=== PATIENT | female | born 1935 | race Caucasian/White ===

== ENCOUNTER → 2020-04-13 13:02 | Outpatient (CLI) | payer MEDICARE, SELFPAY ==
--- NOTE | ~2020-04-13 | DEXA_ITS ---
Bone Density Report Name: Belem Duran Age: 85 Sex: Female Ethnicity: White Date of : 1935 Indication: postmenopausal osteoporosis; height loss; prior fracture; hysterectomy; rheumatoid arthritis; Referring Provider: Mahendra Butterfield Study: Bone densitometry was performed. Exam Date: April 13, 2020 Accession number: [id number] Bone Density: Region BMD T-score Z-score Classification AP Spine (L1, L2) 0.753 -2.1 0.6 Osteopenia Femoral Neck (Right) 0.498 -3.2 -0.7 Osteoporosis Total Hip (Right) 0.550 -3.2 -1.0 Osteoporosis World Health Organization criteria for BMD impression classify patients as: Normal (T-score at or above -1.0), Osteopenia (T-score between -1.0 and -2.5), or Osteoporosis (T-score at or below -2.5). 10-year Fracture Risk: FRAX not reported because: Some T-score for Spine Total or Hip Total or Femoral Neck at or below -2.5 Prior hip or vertebral fracture Previous Exams: Region Exam Age BMD T-score BMD Change BMD Change Date g/cm2 vs Baseline vs Previous AP Spine(L1, L2) 04/13/2020 85 0.753 -2.1 0.022 0.022 12/12/2015 80 0.731 -2.3 Total Hip(Right) 04/13/2020 85 0.550 -3.2 -0.024 -0.024 12/12/2015 80 0.574 -3.0 *Denotes significance at 95% confidence level, LSC for AP Spine = 0.022 g/cm2, LSC for Total Hip = 0.027 g/cm2 Clinical Information Provided by Patient: Have had a previous hip or vertebral fracture Has had a low trauma fracture Has rheumatoid arthritis Has used the following medications: Vitamin D, Calcium Has the following medical conditions: Hysterectomy Patient maximum height was 62 Menopause Age: 57 Does not regularly consume dairy products Drinks caffeinated beverages Onset of menses at age 16 Number of children 3 Impression: The patient has established osteoporosis, based on the Right Total Hip T-score and the existence of a prior fracture. The patient has risk factors, including: previous fracture. No significant bone loss was observed. Discussion: HIGH RISK OF FRACTURE. BONE DENSITY IS UNDESIRABLY LOW AT ONE OR MORE SKELETAL SITES, CONSISTENT WITH POSTMENOPAUSAL OSTEOPOROSIS. This patient's lowest T-score, in a patient who has previously fractured, meets the World Health Organization's (WHO) criteria for severe osteoporosis. In untreated patients, the risk of osteoporotic fracture increases approximately two-fold for each 1.0 SD decrease in T-score. Low bone density is not the only risk factor for fracture; also consider factors such as patient's
== END ==
PROVIDERS: PCP Physician Assistant; Visit Provider Physician Assistant
DX: Z78.0 Asymptomatic menopausal state (principal); M85.88 Other specified disorders of bone density and structure, other site; M81.0 Age-related osteoporosis without current pathological fracture
CPT/HCPCS: 77080

== ENCOUNTER 2020-06-27 09:26 | Outpatient (CLI) | payer MEDICARE, SELFPAY ==
--- NOTE | ~2020-06-27 | MM_ITS ---
EXAMINATION: MM screening antonio BI w kristie HISTORY: Screening mammogram TECHNIQUE: Craniocaudal and mediolateral oblique 3-D tomosynthesis images were obtained and synthetic 2-D images were generated. CAD analysis was submitted and interpreted. COMPARISON: 12/18/2016, 12/12/2015, 12/09/2014 bilateral digital screening mammogram examinations BREAST PARENCHYMAL COMPOSITION: There are scattered areas of fibroglandular density. FINDINGS: Scattered bilateral benign calcifications. Stable fibroglandular asymmetry. There is no andrew dence of suspicious mass, calcification, or architectural distortion to suggest malignancy in either breast. There has been no suspicious interval change. IMPRESSION: 1. No mammographic evidence of malignancy. 2. Recommend routine screening mammography in one year. BI-RADS Category 2: Benign finding(s). Reviewed, dictated and finalized at location A.
== END 2020-06-27 09:27 | disposition home or self-care (01) ==
LOC: ANHIMG 09:29
PROVIDERS: PCP Internal Medicine; Visit Provider Internal Medicine
DX: Z12.31 Encounter for screening mammogram for malignant neoplasm of breast (principal)
CPT/HCPCS: 77063; 77067

== ENCOUNTER 2020-08-30 10:43 | Emergency (ER) | payer MEDICARE, SELFPAY ==
--- NOTE | ~2020-08-30 | XR_ITS ---
XR hip LT 2V w AP pelvis 08/30/2020 11:08 Indication: Pelvic pain Procedure: AP pelvis and 2 views left hip Comparison: No prior studies for comparison. Findings: There is a nondisplaced left superior and inferior pubic rami fractures. There is a left to [place] hip arthroplasty. There is osteitis pubis. There is lower lumbar spondylosis partially visualized . No significant soft tissue abnormality. Impression: 1: Nondisplaced left superior and inferior pubic rami fractures. Reviewed, dictated and finalized at location B. Impression: 1: Nondisplaced left superior and inferior pubic rami fractures.
[2020-08-30 10:51] VITALS: BP 142/77; PULSE 79; RESP 16; TEMP 36.9; O2SAT 97
--- NOTE | 2020-08-30 10:54 | ED.LOWEXIN ---
HPI - Extremity Injury (Lower) General Chief Complaint: Extremity Injury, Lower Stated Complaint: Fall History of Present Illness HPI Narrative: The vaccinated patient who walks regularly w/o assistance-- on few meds and lives alone, in independent living at [facility]-- presents with hip pain. Patient states she has had left hip replacement [[place], no local orthopedist] and prior to arrival she slipped and fell striking her left hip .She complains of mod pain, antalgic gait that is worse with motion, better at rest, located at her left inguinal crease. No bleeding, other injury, neck pain, deformity at site, but she has a skin avulsion to her right extensor wrist, tetanus status uncertain Discussed plan with patient to consult her PMD, orthopedics on-call [Dr. Blancas], nursing assistant, family for treatment & placement. Patient offered ambulance which she declines Related Data Home Medications Medication Instructions Recorded Confirmed ascorbic acid (vitamin C) 500 mg 500 mg PO DAILY 05/11/19 06/21/20 tablet cholecalciferol (vitamin D3) 25 1,000 unit PO DAILY 05/11/19 06/21/20 mcg (1,000 unit) capsule multivit with 1 tablet PO DAILY 02/04/20 06/21/20 [id number]-bkmy-PR-lutein 8 mg iron-400 mcg-300 mcg tablet vit C 250 mg-vit E 200 unit-zinc 1 tablet PO QAM AND QPM 02/04/20 06/21/20 12.5 mg-copper 1 ky-dvi-gyeyiw tablet lisinopril 10 mg tablet 10 mg PO DAILY 06/21/20 06/21/20 Allergies Allergy/AdvReac Type Severity Reaction Status Date / Time No Known Allergies Allergy NONE Unverified 06/21/20 10:30 Review of Systems Review of Systems: Narrative: General/Constitutional: No weight loss,fever Eyes: N0: Redness,discharge Ears/Nose/Throat: No: Epistaxis,ear discharge Respiratory: Denies: Hemoptysis Gastrointestinal: No Vomiting, Bleeding-rectal Skin: No Lumps, eruption Neurologic: No Focal Weakness,Sz Hematologic: Denies: Petechiae/Purpura Psychiatric: No: Suicida ideationl All Other Systems: Reviewed and Negative [facility] Past Medical History Medical History (Updated 08/30/20 @ 16:02 by Aaron Ga MD) Basal cell carcinoma Cataract fragments of both eyes following cataract surgery Generalized osteoarthritis of multiple sites Hammer toe of right foot 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 Surgical History Surgical History H/O hand surgery H/O lateral meniscus repair of left knee History of lumbar laminectomy for spinal cord decompression History of partial hysterectomy History of repair of hiatal hernia History of total left hip replacement Family History Family History Sibling Family history of malignant neoplasm Father Malignant neoplasm of prostate, Onset Age: 93 Diabetes mellitus Mother Hypertension Family history of malignant neoplasm of uterus Other Family history of diabetes mellitus in first degree relative Social History Social History Smoking status: Former smoker Second hand tobacco smoke exposure: No Smoking end date: 03/25/71 Alcohol intake: never Substance use: never Substance use type: does not use Gender identity (if verbalized by the patient): Female Spiritual care concerns: Yes (Latter Day) Agree to blood products: Yes Comments At time of signature, agree with nursing past medical, surgical, social and family history. There is no relevant family history pertinent to the presenting complaint Exam Narrative: Exam Narrative: General Appearance: N/aged appearing EYE: PERRLA, EOMI, Conjunctiva clear Ears: External ear normal, Auditory canal normal Nose: Normal nose, Nares clear Mouth/Throat: Normal appearing, Normal lips Neck: Supple Respiratory: A
[2020-08-30] MEDS: TETANUS,DIPHTHERIA,AC PERTUSSIS ADULT (0.5 ML) BOOSTRIX IM (12:26)
--- NOTE | 2020-08-30 12:41 | PC.NURSE ---
Attempting to contact Dr. Valdes without success. Message left at office number. No other numbers available. No call back received. Dr. Hampton contacted as head refrigeration engineer doctor. Patient with previous hip surgery that was done in [place].
--- NOTE | 2020-08-30 13:10 | PC.NURSE ---
Report was called to Rosmery FRANKLIN at [facility]
== END 2020-08-30 13:04 | disposition short-term general hospital (02) ==
PROVIDERS: Emergency Provider Emergency Medicine; PCP Internal Medicine
DX: S32.512A Fracture of superior rim of left pubis, initial encounter for closed fracture (principal); S32.592A Other specified fracture of left pubis, initial encounter for closed fracture; S61.411A Laceration without foreign body of right hand, initial encounter; W01.0XXA Fall on same level from slipping, tripping and stumbling without subsequent striking against object, initial encounter; Z23 Encounter for immunization; M19.90 Unspecified osteoarthritis, unspecified site; M06.9 Rheumatoid arthritis, unspecified; Z85.828 Personal history of other malignant neoplasm of skin; Z96.642 Presence of left artificial hip joint
CPT/HCPCS: 12001; 73502; 90471; 90715; 99213; G0463

== ENCOUNTER 2020-08-30 13:18 | Observation (INO) | payer MEDICARE, SELFPAY ==
[2020-08-30] VITALS (16 sets, daily range): BP systolic 133–174; BP diastolic 79–107; PULSE 82–95; RESP 16–20; TEMP 36.1–36.6; O2SAT 92–99; BMI 23.6
--- NOTE | 2020-08-30 13:57 | ED.LOWEXIN ---
HPI - Extremity Injury (Lower) General Chief Complaint: Extremity Injury, Lower Stated Complaint: pelvic fx sent from urgent care Time Seen by Provider: 08/30/20 13:37 History of Present Illness HPI Narrative: Patient is an 85-year-old female who presents ER after suffering a left pubic ramus fracture after walking up 1 step. Diagnosed at a urgent care and then referred here at the recommendation of orthopedic surgery. Patient has no new pain is not want any pain control at this time. She has no numbness or tingling to her lower extremity. Pain is worsened by movement of the left lower extremity and improved by sitting still. Patient did not strike her head or lose consciousness. Related Data Home Medications Medication Instructions Recorded Confirmed ascorbic acid (vitamin C) 500 mg 500 mg PO DAILY 05/11/19 06/21/20 tablet cholecalciferol (vitamin D3) 25 1,000 unit PO DAILY 05/11/19 06/21/20 mcg (1,000 unit) capsule multivit with 1 tablet PO DAILY 02/04/20 06/21/20 nxnyaenk-akdk-RS-lutein 8 mg iron-400 mcg-300 mcg tablet vit C 250 mg-vit E 200 unit-zinc 1 tablet PO QAM AND QPM 02/04/20 06/21/20 12.5 mg-copper 1 qc-dxd-jfbtfo tablet lisinopril 10 mg tablet 10 mg PO DAILY 06/21/20 06/21/20 Allergies Allergy/AdvReac Type Severity Reaction Status Date / Time No Known Allergies Allergy NONE Unverified 06/21/20 10:30 Review of Systems Review of Systems: All systems reviewed & are unremarkable except as noted in HPI and below Constitutional: Constitutional: Denies chills and Denies fever(s) Musculoskeletal: Musculoskeletal: Reports arthralgias, Denies joint swelling and Denies muscle cramps Neurologic: Denies syncope, Denies headache(s), Denies focal weakness and Denies numbness [facility] Past Medical History Medical History (Updated 08/30/20 @ 16:01 by Anoop Medina MD) Basal cell carcinoma Cataract fragments of both eyes following cataract surgery Generalized osteoarthritis of multiple sites Hammer toe of right foot 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 Surgical History Surgical History H/O hand surgery H/O lateral meniscus repair of left knee History of lumbar laminectomy for spinal cord decompression History of partial hysterectomy History of repair of hiatal hernia History of total left hip replacement Family History Family History Sibling Family history of malignant neoplasm Father Malignant neoplasm of prostate, Onset Age: 93 Diabetes mellitus Mother Hypertension Family history of malignant neoplasm of uterus Other Family history of diabetes mellitus in first degree relative Social History Social History Smoking status: Former smoker Second hand tobacco smoke exposure: No Smoking end date: 03/25/71 Alcohol intake: never Substance use: never Substance use type: does not use Gender identity (if verbalized by the patient): Female Spiritual care concerns: Yes (Rastafarian) Agree to blood products: Yes Exam Narrative: Exam Narrative: GENERAL: Well-appearing, well-nourished, and in no acute distress. HEAD: Normocephalic, atraumatic. CHEST: Clear to auscultation. No respiratory distress. HEART: Regular rate and rhythm. Normal peripheral pulses. EXTREMITIES: Decreased range of motion of the left hip due to pain. Normal range of motion right lower extremity. No lower extremity shortening or external rotation. SKIN: Warm, dry, no rash. NEURO: No focal deficits. Alert and oriented x3. PSYCH: Normal mood and affect. Course Reevaluation(s) Reevaluation #1: Attempted to contact orthopedic surgery who did not come to the phone and said patient should just be admitted to the hospitalist. This appea
--- NOTE | 2020-08-30 14:25 | PCCCNOTE ---
Care Coordination spoke with patient about her needs since her fall and fractured pelvis. Patient states she will need help with basic ADL's and would like to go to [facility]. Patient requested Care Coordination call Dominga at [facility]. CC spoke with Dominga who states patient can be private pay or [facility] can be contacted for auth. Patient prefers to go SNF. notified and he will place patient into observation with orders for PT/OT eval and treat. [facility] auth will need to be submitted. Patient reports she has had [place] immunizations in Apr.
[2020-08-30 14:54] LABS: Basophils Absolute Auto 0.1 K/mm3 (0.0-0.1); Basophils Percent Auto 0.4 % (0.2-1.2); Eosinophils Percent Auto 0.3 % (0-4.4); Hematocrit 40.4 % (37.0-47.0); Hemoglobin 13.1 g/dL (12.0-15.0); Immature Granulocyte Absolute 0.04 K/mm3 (0.00-0.031); Immature Granulocyte Percent A 0.3 % (0-0.5); Lymphocytes Absolute Auto 0.82 K/mm3 (0.9-3.2); Lymphocytes Percent Auto 6.9 % (18.3-44.2); Mean Corpuscular HGB Conc 32.4 g/dl (32-36); Mean Corpuscular Hemoglobin 30.4 pg (26-34); Mean Corpuscular Volume 93.7 fl (80-100); Mean Platelet Volume 10.7 fl (7.4-10.4); Monocytes Absolute Auto 0.9 K/mm3 (0.1-0.6); Monocytes Percent Auto 7.6 % (2.6-8.5); Neutrophils Percent Auto 84.5 % (45.5-73.1); Platelet Count Result 202 k/mm3 (150-375); Red Blood Count 4.31 M/mm3 (4.2-5.4); Red Cell Distribution Width 13.8 % (11.5-14.5); White Blood Count 11.9 K/mm3 (4.5-10.0)
[2020-08-30 15:03] LABS: Anion Gap 8 mmol/L (8-16); Blood Urea Nitrogen 16 mg/dL (7-17); Calcium 9.2 mg/dL (8.4-10.2); Carbon Dioxide 25 mmol/L (22-30); Chloride 102 mmol/L (98-107); Estimated Glomerular Filt Rate > 60; Glucose 95 mg/dL (65-105); Potassium 4.4 mmol/L (3.4-5.0); Sodium 135 mmol/L (137-145)
--- NOTE | 2020-08-30 17:45 | PC.NURSE ---
This patient, Belem Duran, was admitted to 3 [facility] Surg Room 316-01. Patient/family oriented to hospital policies and general routines including ID bracelet, bed and alarms, visiting hours, pain management, procedures, bathroom and other care routines, personal items, smoking policy, room service/diet, and visiting hours. Information on how to activate the Rapid Response Team has been discussed. Patient/Family are encouraged to report perceived risks to care and to ask questions if they do not understand what they are told or what they should do.
--- NOTE | 2020-08-30 19:32 | PM.IMHP ---
H&P: HPI History of Present Illness Date/Time: 08/30/20 19:32 this is a 85-year-old female patient who resides at [facility]. The patient stated that she was going into another room and missed a step and fell. She did not have any chest pain or palpitations she did not feel dizzy. No fever chills or cough. To urgent care and was diagnosed there for a pelvic ramus fracture. She was referred here for recommendations for orthopedic surgery. However this is not a diagnosis that would require surgery. The patient had no numbness or tingling. Orthopedic had been called from the emergency room. It was recommended that the patient just be admitted to the hospitalist. Nondisplaced left superior and inferior pubic rami fractures. Complaints. The patient was ordered morphine Tylenol Zofran and [place]. However does not look like the patient has taken anything as of yet. The patient is being admitted to observation status. Date of service is 08/30/2020. Chief Complaint: Fall with pelvic pain Review of Systems Review of Systems: All systems reviewed & are unremarkable except as noted in HPI and below Constitutional: Constitutional: Reports as per HPI and Reports no additional constitutional complaints Eyes: Eyes: Reports as per HPI and Reports no additional eye complaints ENT: Reports system reviewed and no additional complaints, except as documented and Reports Normal hearing present Cardiovascular: Cardiovascular: Reports no additional cardiovascular complaints Respiratory: Respiratory: Reports no additional respiratory complaints and Reports no additional respiratory complaints Gastrointestinal: Gastrointestinal: Reports as per HPI and Reports no additional gastrointestinal complaints Musculoskeletal: Musculoskeletal: Reports no additional musculoskeletal complaints Integumentary/Breasts: Skin/Breast: Reports system reviewed and no additional complaints, except as docu and Reports as per HPI Neurologic: Reports system reviewed and no additional complaints, except as documented, Reports as per HPI and Reports Normal hearing present Psychiatric: Psychiatric: Reports no additional psychiatric complaints and Reports as per HPI Endocrine: Endocrine: Reports no additional endocrine complaints Hematologic/Lymphatic: Hematologic/Lymphatic: Reports no additional hematologic/lymphatic complaints Allergic/Immunologic: Allergic/Immunologic: Reports no additional allergic/immunologic complaints [facility] Past Medical History Medical History (Updated 08/30/20 @ 20:08 by Zarina Sterling NP) Basal cell carcinoma Face Breast cancer screening Counseling on health promotion and disease prevention Encounter for Medicare annual wellness exam Encounter for medication management Generalized osteoarthritis of multiple sites Hammer toe of right foot Hypertension Osteoporosis Osteoporosis screening Rheumatoid arthritis 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 Hands Surgical History Surgical History (Updated 08/30/20 @ 19:47 by Zarina Sterling NP) H/O bilateral cataract extraction H/O hand surgery H/O lateral meniscus repair of left knee History of lumbar laminectomy for spinal cord decompression History of partial hysterectomy History of removal of pigmented skin lesion Basal cell from the face and squamous cell from the hand History of repair of hiatal hernia History of total left hip replacement Family History Family History Sibling Family history of malignant neoplasm Father Malignant neoplasm of prostate, Onset Age: 93 Diabetes mellitus Mother Hypertension Family history of malignant neoplasm of uterus Other Family history of diabetes mellitus in first degree relative Social History Social History (Updated 08/30/20 @ 19:48 by Zarina Kc
[2020-08-30] MEDS: lisinopriL 5 MG TABLET PO (22:07)
--- NOTE | 2020-08-31 03:50 | PHAR ---
HOME MEDICATION VERIFIED BY PHARMACY: PRESERVISION AREDS 2 OCULAR VITAMIN SEALED CONTAINER
[2020-08-31 06:00] VITALS: BP 116/75; PULSE 74; RESP 18; TEMP 36.2; O2SAT 98
[2020-08-31 07:16] LABS: Basophils Percent Auto 0.5 % (0.2-1.2); Eosinophils Absolute Auto 0.1 K/mm3 (0-0.3); Eosinophils Percent Auto 1.5 % (0-4.4); Hematocrit 34.4 % (37.0-47.0); Hemoglobin 11.5 g/dL (12.0-15.0); Immature Granulocyte Absolute 0.01 K/mm3 (0.00-0.031); Immature Granulocyte Percent A 0.2 % (0-0.5); Lymphocytes Absolute Auto 0.99 K/mm3 (0.9-3.2); Lymphocytes Percent Auto 16.7 % (18.3-44.2); Mean Corpuscular HGB Conc 33.4 g/dl (32-36); Mean Corpuscular Hemoglobin 30.7 pg (26-34); Mean Corpuscular Volume 91.7 fl (80-100); Mean Platelet Volume 11.3 fl (7.4-10.4); Monocytes Absolute Auto 0.7 K/mm3 (0.1-0.6); Monocytes Percent Auto 11.7 % (2.6-8.5); Neutrophils Absolute Auto 4.1 K/mm3 (1.3-6.7); Neutrophils Percent Auto 69.4 % (45.5-73.1); Platelet Count Result 195 k/mm3 (150-375); Red Blood Count 3.75 M/mm3 (4.2-5.4); Red Cell Distribution Width 13.8 % (11.5-14.5); White Blood Count 5.9 K/mm3 (4.5-10.0)
[2020-08-31 07:31] LABS: Alanine Aminotransferase 7 U/L (4-35); Albumin Level 3.1 g/dL (3.5-5.1); Alkaline Phosphatase 64 U/L (38-126); Anion Gap 8 mmol/L (8-16); Aspartate Amino Transferase 23 U/L (14-36); Blood Urea Nitrogen 13 mg/dL (7-17); Calcium 8.6 mg/dL (8.4-10.2); Carbon Dioxide 24 mmol/L (22-30); Chloride 102 mmol/L (98-107); Estimated Glomerular Filt Rate > 60; Glucose 87 mg/dL (65-105); Magnesium 2.1 mg/dL (1.6-2.3); Potassium 4.1 mmol/L (3.4-5.0); Sodium 134 mmol/L (137-145)
--- NOTE | 2020-08-31 08:35 | PCOTNOTE ---
Attempted OT evaluation, awaiting WB orders in order to complete evaluation. Will follow.
[2020-08-31] MEDS: CHOLECALCIFEROL 1,000 UNITS TABLET 1000 UNITS PO (08:39)
[2020-08-31] MEDS: MULTIVITAMINS /C LUTEIN (CENTRUM SILVER) TABLET *BKC 1 TAB PO (08:40)
[2020-08-31] MEDS: PRAVASTATIN SODIUM 10 MG TABLET PO (08:40)
[2020-08-31 09:56] VITALS: O2SAT 98
--- NOTE | 2020-08-31 12:38 | PM.CNOR ---
Assessment and Plan Additional Plan Patient is an 85-year-old female who fell yesterday onto her left side and had pain in the groin. She was seen at Urgent Care and ventrally transferred to the hospital for further evaluation and she was not felt to be a candidate for discharge to her [facility] apartment where she lives by herself and she was admitted for management. The x-rays left hip and AP pelvis show a well-positioned left total hip arthroplasty that was placed 7 years ago when she fell and sustained a femoral neck fracture. With her history of rheumatoid arthritis it was elected to do a total hip replacement and this has worked very well and fortunately the hip replacement looks intact on the x-rays. The x-rays do show a mildly impacted mid superior and mid inferior pubic ramus fractures on the left. No other fractures identified. She does have a history of osteoporosis and a bone density test in March was-3.2. Some years ago she completed her 5 year course of Fosamax. She is being referred by her primary care physician to of bone heat treater helper for evaluation whether osteoporosis treatment options and her appointment is in later September and hopefully she will be able to make that appointment. Her past medical history is significant for a pulmonary embolism 25 years ago which occurred while she was taking Prempro. She has a history of smoking but was not smoking at that time. She has remained off estrogen medications ever since of course and was treated with Coumadin for a period of time. She used to take a baby aspirin a day and this was in association with an anti hypertension medication but both of those were stopped years ago. Recently her antihypertensive in medication was resumed. She is on no blood thinning medications at this time. She has had no recurrent thromboembolic events to her knowledge. On examination today she is very alert and oriented. She is sitting up in the chair and she is not having any pain. She only hurts when she puts weight on it. There is no swelling in the left leg no calf tenderness. She has a 1+ dorsalis pedis pulse palpable and has intact motor sensation left ankle. She denies any other injury. Laboratory studies show mild anemia hemoglobin 11.5. Normal creatinine and platelets. Impression: Patient has mildly displaced left superior and inferior pubic ramus fractures. She does take a vitamin-D supplement and we will check a 25 hydroxy vitamin-D level to make sure it is within the normal range. She has a history of osteoporosis with a T-score of -3.2 in the right hip back in March of this year. I think she will need to be on additional medication perhaps Forteo or Tymlos. she has been through the 5 years of Fosamax already. I am going to add Citracal twice daily. She is at risk for thromboembolic complications with her history of a pulmonary embolism. I would recommend Eliquis 2.5 mg for 6 weeks. Of the blood thinner options for prophylaxis, Eliquis as the lowest risk of bleeding complications and a highest efficacy. She asked if the cost could be evaluated for her. I have written orders for physical therapy here at the hospital as well as on her discharge summary. I would like to see her in the office in 4 weeks with AP pelvis x-ray at that time to assess healing and if she has no pain and there is some callus formation we may be able to advance her to weight-bearing as tolerated at that time. She would like to go to the rehab unit at [place] at discharge from the hospital when she is felt stable History of Present Illness HPI Consult date: 08/31/20 Chief complaint: pubic rami fracture [facility] Past Medical History Medical History (Updated 08/31/20 @ 00:01 by Ran Rossi) Basal cell carcinoma Face Breast cancer screening Counseling on health promotion and disease prevention Encounter for Medicare annual wellness exam Encounter for medication management Generalize
--- NOTE | 2020-08-31 13:23 | PCPTNOTE ---
Per ortho consultation following PT evaluation, patient is to now be 25# weight bearing, was previously WBAT per hospitalist. No heel slides or SLR at this time.
[2020-08-31 14:00] VITALS: BP 122/60; PULSE 80; RESP 16; TEMP 36.7; O2SAT 97
--- NOTE | 2020-08-31 14:10 | PCOTNOTE ---
Per ortho consultation following OT evaluation, patient is to now be 25lb weight bearing, was previously WBAT per hospitalist.
--- NOTE | 2020-08-31 15:56 | PM.IMPN ---
Progress Note: A&P Assessment and Plan (1) Fracture of left inferior pubic ramus: Qualifiers: Encounter type: initial encounter Fracture type: closed Qualified Code(s): S32.592A - Other specified fracture of left pubis, initial encounter for closed fracture Code(s): S32.592A - Other specified fracture of left pubis, initial encounter for closed fracture Status: Inactive Assessment and Plan: PT and OT evaluation. ER did consult orthopedic physician although there would not be any surgery involved. director of rehabilitative services or date night caregiver for rehab. The patient resides at [facility] and would like to go to [place] rehab facility. Continue with pain management. (2) Hypertension: Code(s): I10 - Essential (primary) hypertension Status: Chronic Assessment and Plan: Continue with lisinopril (3) Rheumatoid arthritis with rheumatoid factor of multiple sites without organ or systems involvement: Code(s): M05.79 - Rheumatoid arthritis with rheumatoid factor of multiple sites without organ or systems involvement Status: Acute Assessment and Plan: Continue with home medications. She mostly has not her hands. (4) Rheumatoid arthritis: Code(s): M06.9 - Rheumatoid arthritis, unspecified Status: Chronic Assessment and Plan: Continue with home medication (5) Hyperlipidemia: Qualifiers: Hyperlipidemia type: unspecified Qualified Code(s): E78.5 - Hyperlipidemia, unspecified Code(s): E78.5 - Hyperlipidemia, unspecified Status: Acute Assessment and Plan: Continue with pravastatin Subjective Date/time seen: 08/31/20 15:56 Interval history: 85-year-old female patient who resides at [facility]. The patient stated that she was going into another room and missed a step and fell. Sustained left pubic ramus fracture, PT today, pain control and home tomorrow. Review of Systems Review of Systems: All systems reviewed & are unremarkable except as noted in HPI and below Exam Const: General: cooperative, healthy appearing, comfortable, no acute distress, well developed, alert, awake and Physically active Nutritional Appearance: average body habitus and well nourished Orientation/consciousness: oriented to person, oriented to place, oriented to time and patient oriented x3 Limitations: no limitations Resp: Effort & Inspection: normal respiratory effort Auscultation: clear to auscultation bilaterally Percussion: percussion normal Cardio: Palpation: normal PMI Rate: regular rate Rhythm: regular rhythm Heart sounds: S1 normal heart sound present and S2 normal heart sound present Peripheral pulses: Peripheral pulses 2+ throughout GI: Inspection: normal to inspection Auscultation: normal bowel sounds Back/Spine/Pelvis: Back: no CVA tenderness Cervical Spine: cervical ROM normal Thoracic/Lumbar Spine: thoracic and lumbar spine normal to inspection Pelvis: no pain with anterior-posterior compression Skin: General skin exam: normal color Lesions: no lesions Rashes: no rashes Trauma: no lacerations or abrasions Wounds: no wounds Hair: normal Nails: normal Neuro: General: oriented to person, oriented to place, oriented to time and patient oriented x3 Cranial nerves: Yes Equal, round and reactive pupils present and Yes Normal hearing present Cognition (Neuro): normal cognition Speech: normal speech Gait exam (Neuro): Normal gait present Motor exam (neuro): 5/5 motor strength present throughout Sensory Exam: normal sensation Extrem: General: normal to inspection Right upper extremity: normal to inspection Left upper extremity: normal to inspection Right lower extremity: normal to inspection Left lower extremity: normal to inspection Psych: Appearance: grossly normal Mental Status: mental status grossly normal Speech and movement: Normal speech and movement present Af
[2020-08-31 20:00] VITALS: O2SAT 97
[2020-08-31] MEDS: APIXABAN 2.5 MG TABLET PO (20:28)
[2020-08-31] MEDS: lisinopriL 5 MG TABLET PO (20:28)
[2020-08-31 20:34] VITALS: BP 125/55; PULSE 74
[2020-08-31 21:23] VITALS: BP 113/64; PULSE 75; RESP 18; TEMP 37.2; O2SAT 96
[2020-09-01 05:43] VITALS: BP 135/65; PULSE 74; RESP 18; TEMP 36.9; O2SAT 95
[2020-09-01 06:51] LABS: Vitamin D 25 Hydroxy 38.5 ng/mL
[2020-09-01] MEDS: APIXABAN 2.5 MG TABLET PO ×2 (08:17→20:38)
[2020-09-01] MEDS: MULTIVITAMINS /C LUTEIN (CENTRUM SILVER) TABLET *BKC 1 TAB PO (08:17)
[2020-09-01] MEDS: PRAVASTATIN SODIUM 10 MG TABLET PO (08:17)
[2020-09-01] MEDS: CHOLECALCIFEROL 1,000 UNITS TABLET 1000 UNITS PO (08:17)
--- NOTE | 2020-09-01 13:18 | PM.DS ---
DS: Admitting Diagnosis Admitting Diagnosis Admitting Diagnosis: Fall with pelvic pain DS: Discharge Diagnosis Discharge Diagnosis (1) Fracture of left inferior pubic ramus: Qualifiers: Encounter type: initial encounter Fracture type: closed Qualified Code(s): S32.592A - Other specified fracture of left pubis, initial encounter for closed fracture Code(s): S32.592A - Other specified fracture of left pubis, initial encounter for closed fracture Status: Inactive Assessment and Plan: PT and OT evaluation. ER did consult orthopedic physician although there would not be any surgery involved. financial services assistant or client care specialist for rehab. The patient resides at [facility] and would like to go to [place] rehab facility. Continue with pain management. Pt is on PARTIAL weight bearing restrictions on the left foot , please review this restriction in 1 weeks time. 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 (3) Generalized osteoarthritis of multiple sites: Code(s): M15.9 - Polyosteoarthritis, unspecified Status: Acute DS: Summary Hospital Course Hospital Course: 85-year-old female patient who resides at [facility]. The patient stated that she was going into another room and missed a step and fell. Sustained left pubic ramus fracture, cont theraphy, pain control, dc to rehab Time Spent with Patient Time attestation: Total time spent providing and/or coordinating discharge services:40 minutes on the day of discharge Exam Const: General: cooperative, healthy appearing, comfortable, no acute distress, well developed, alert, awake and Physically active Nutritional Appearance: average body habitus and well nourished Orientation/consciousness: oriented to person, oriented to place, oriented to time and patient oriented x3 Limitations: no limitations HENMT: Head: normal to inspection, No palpable skull fracture present, normocephalic and atraumatic Ears: hearing grossly normal bilaterally and external ears normal General nose exam: Normal external nose present and Normal nares present Mouth: Yes Normal oral and palatal mucosa present Throat: posterior oropharynx normal Eyes: General: appearance normal, both eyes and all related structures Alignment and Position: alignment normal Periorbital: periorbital findings normal Eyelids: eyelids normal Conjunctivae: conjunctivae normal Sclera: sclerae normal Cornea: corneas normal Pupils: Equal, round and reactive pupils present EOM: EOMs intact bilaterally Neck: Neck: normal visual inspection, full ROM, no lymphadenopathy, trachea midline and supple Thyroid: thyroid normal Carotids: normal carotid upstroke Lymphatic: no lymphadenopathy noted Chest: Chest palpation & inspection: normal inspection of the chest Resp: Effort & Inspection: normal respiratory effort Auscultation: clear to auscultation bilaterally Percussion: percussion normal Cardio: Palpation: normal PMI Rate: regular rate Rhythm: regular rhythm Heart sounds: S1 normal heart sound present and S2 normal heart sound present Peripheral pulses: Peripheral pulses 2+ throughout GI: Inspection: normal to inspection Auscultation: normal bowel sounds Back/Spine/Pelvis: Cervical Spine: cervical ROM normal Thoracic/Lumbar Spine: thoracic and lumbar spine normal to inspection Pelvis: no pain with anterior-posterior compression Skin: General skin exam: normal color Lesions: no lesions Rashes: no rashes Trauma: no lacerations or abrasions Wounds: no wounds Hair: normal Nails: normal Neuro: General: oriented to person, oriented to place, oriented to time and patient musa
[2020-09-01 14:00] VITALS: BP 105/63; PULSE 86; RESP 16; TEMP 36.5; O2SAT 96
--- NOTE | 2020-09-01 15:49 | PM.IMPN ---
Progress Note: A&P Assessment and Plan (1) Fracture of left inferior pubic ramus: Qualifiers: Encounter type: initial encounter Fracture type: closed Qualified Code(s): S32.592A - Other specified fracture of left pubis, initial encounter for closed fracture Code(s): S32.592A - Other specified fracture of left pubis, initial encounter for closed fracture Status: Inactive Assessment and Plan: PT and OT evaluation. ER did consult orthopedic physician although there would not be any surgery involved. director of special services or career center director for rehab. The patient resides at [facility] and would like to go to [place] rehab facility. Continue with pain management.Awaiting rehab placement (2) Hypertension: Code(s): I10 - Essential (primary) hypertension Status: Chronic Assessment and Plan: Continue with lisinopril (3) Rheumatoid arthritis with rheumatoid factor of multiple sites without organ or systems involvement: Code(s): M05.79 - Rheumatoid arthritis with rheumatoid factor of multiple sites without organ or systems involvement Status: Acute Assessment and Plan: Continue with home medications. She mostly has not her hands. (4) Rheumatoid arthritis: Code(s): M06.9 - Rheumatoid arthritis, unspecified Status: Chronic Assessment and Plan: Continue with home medication (5) Hyperlipidemia: Qualifiers: Hyperlipidemia type: unspecified Qualified Code(s): E78.5 - Hyperlipidemia, unspecified Code(s): E78.5 - Hyperlipidemia, unspecified Status: Acute Assessment and Plan: Continue with pravastatin Subjective Date/time seen: 09/01/20 15:49 Interval history: 85-year-old female patient who resides at [facility]. The patient stated that she was going into another room and missed a step and fell. Sustained left pubic ramus fracture, cont theraphy, pain control and awaiting rehab Review of Systems Review of Systems: All systems reviewed & are unremarkable except as noted in HPI and below Exam Const: General: cooperative, healthy appearing, comfortable, no acute distress, well developed, alert, awake and Physically active Nutritional Appearance: average body habitus and well nourished Orientation/consciousness: oriented to person, oriented to place, oriented to time and patient oriented x3 Limitations: no limitations HENMT: Head: normal to inspection, No palpable skull fracture present, normocephalic and atraumatic Ears: hearing grossly normal bilaterally and external ears normal General nose exam: Normal external nose present and Normal nares present Mouth: Yes Normal oral and palatal mucosa present Throat: posterior oropharynx normal Eyes: General: appearance normal, both eyes and all related structures Alignment and Position: alignment normal Periorbital: periorbital findings normal Eyelids: eyelids normal Conjunctivae: conjunctivae normal Sclera: sclerae normal Cornea: corneas normal Pupils: Equal, round and reactive pupils present EOM: EOMs intact bilaterally Neck: Neck: normal visual inspection, full ROM, no lymphadenopathy, trachea midline and supple Thyroid: thyroid normal Carotids: normal carotid upstroke Lymphatic: no lymphadenopathy noted Chest: Chest palpation & inspection: normal inspection of the chest Resp: Effort & Inspection: normal respiratory effort Auscultation: clear to auscultation bilaterally Percussion: percussion normal Cardio: Palpation: normal PMI Rate: regular rate Rhythm: regular rhythm Heart sounds: S1 normal heart sound present and S2 normal heart sound present Peripheral pulses: Peripheral pulses 2+ throughout GI: Inspection: normal to inspection Auscultation: normal bowel sounds Rectal Exam: deferred : General: Yes no CVA tenderness Back/Spine/Pelvis: Back: no CVA tenderness Cervical Spine: cervical ROM janett
[2020-09-01] MEDS: lisinopriL 5 MG TABLET PO (20:38)
[2020-09-01 20:41] VITALS: BP 127/78; PULSE 75
[2020-09-01 22:00] VITALS: BP 136/70; PULSE 74; RESP 18; TEMP 36.4; O2SAT 96
[2020-09-02 06:00] VITALS: BP 138/71; PULSE 74; RESP 18; TEMP 36.2; O2SAT 94
[2020-09-02] MEDS: PRAVASTATIN SODIUM 10 MG TABLET PO (08:24)
[2020-09-02] MEDS: CHOLECALCIFEROL 1,000 UNITS TABLET 1000 UNITS PO (08:24)
[2020-09-02] MEDS: MULTIVITAMINS /C LUTEIN (CENTRUM SILVER) TABLET *BKC 1 TAB PO (08:24)
[2020-09-02] MEDS: APIXABAN 2.5 MG TABLET PO (08:24)
--- NOTE | 2020-09-02 10:17 | PC.NURSE ---
Pt is being discharged. Pt has had IV removed, and discharge instructions reviewed. Pt exhibits good understanding of all discharge instructions. Home meds returned. Pt states she is missing her clothes she wore to the ED and her shoes. After searching for them, we notified our assembly line supervisor and filled out an incident report. Pt request she get a follow up call. Pt states she does not think they came up with her from the ED. Report called to Gisele at [facility], and packet being sent with pt. Pt is being assisted into her friends car, by staff.
== END 2020-09-02 10:20 ==
LOC: ANHED 16:01 → ANH3MEDSUR 17:03
PROVIDERS: Nurse Practitioner; Orthopaedic Surgery; Admitting Provider Internal Medicine; Emergency Provider Emergency Medicine; PCP Internal Medicine; Visit Provider Family Medicine
DX: S32.592A Other specified fracture of left pubis, initial encounter for closed fracture (principal); W19.XXXA Unspecified fall, initial encounter; I10 Essential (primary) hypertension; E78.5 Hyperlipidemia, unspecified; M81.0 Age-related osteoporosis without current pathological fracture; M06.9 Rheumatoid arthritis, unspecified; Z86.711 Personal history of pulmonary embolism; Z87.891 Personal history of nicotine dependence; Z96.642 Presence of left artificial hip joint; Z85.828 Personal history of other malignant neoplasm of skin
CPT/HCPCS: 36415; 73502; 80048; 80053; 82306; 83735; 84443; 85025; 90471; 90715; 97161; 97165; 97530; 97535; 99285; A9270; G0378

== ENCOUNTER 2021-04-26 08:44 | Emergency (ER) | payer MEDICARE, SELFPAY ==
--- NOTE | ~2021-04-26 | CT_ITS ---
EXAMINATION: CT abdomen pelvis w con DATE: 04/26/2021 11:50 INDICATION: Fall. Pelvic pain. TECHNIQUE: Computed tomography (CT) of the abdomen and pelvis was performed with 100 cc Omnipaque 350 intravenous contrast. Automated exposure control and iterative reconstruction technique were employe d. Exam dose: 284.55 mGy-cm total exam DLP. COMPARISON: 04/26/2021 pelvis 11/09/2017 CT abdomen pelvis FINDINGS: Cardiomegaly. No pericardial or pleural effusion. There is discoid atelectasis and/or scarr ing in the lower lung zones, particularly the left lower lobe. Occasional hepatic cysts measuring up to approximately 12 mm. No suspicious hepatic, splenic, pancreatic or adrenal or renal mass lesions are noted. Approximately 7 mm exophytic left renal upper pole cortical cyst Moderately prominent extrarenal pelves, greater on the left, with mild left hydronephrosis. No urinar y tract calculus or hydroureteronephrosis is evident. The urinary bladder appears unremarkable. 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 There is extensive calcification of the abdominal aorta. No intraperitoneal or retroperitoneal or pelvic mass lesion or lymphadenopathy or ascites. There is a small sliding hiatal hernia. Normal appendix. There are numerous diverticula of the left and right colon; no evidence of divertic ulitis. No bowel obstruction, bowel wall thickening, pneumatosis or intraperitoneal free air is evide nt. There are old fracture deformities of the left superior and inferior pubic rami. Status post left hip arthroplasty. 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 Reviewed, dictated and finalized at [facility]. ER TIRE CURER
--- NOTE | ~2021-04-26 | CT_ITS ---
EXAMINATION: CT brain wo con DATE: 04/26/2021 11:44 INDICATION: Patient fell and struck head. TECHNIQUE: Computed tomography (CT) of the head was performed without intravenous contrast. The mA wa s adjusted according to patient size. Iterative reconstruction technique was employed. Exam dose: 60 5.33 mGy-cm total exam DLP. COMPARISON: None FINDINGS: Bilateral carotid siphon internal carotid artery calcifications, basilar artery and bilater al vertebral artery calcifications. There is nonspecific patchy moderately prominent diminished attenuation of the cerebral white matter, likely due to chronic small vessel ischemic changes. There are chronic lacunar infarcts of the cerebellum, thalami and right periventricular area. No intracranial mass lesion or hemorrhage, midline shift or mass effects is detected. No subdural or epidural hematoma. The paranasal sinuses and mastoid air cells are well-aerated. No fracture or bone destruction of the cranial vault. The orbital contents are unremarkable. IMPRESSION: Cerebral atherosclerosis and chronic small vessel ischemic changes of the cerebral white matter Cerebellar and bilateral thalamic and right periventricular chronic lacunar infarcts No skull fracture or acute intracranial finding Reviewed, dictated and finalized at [facility]. Reviewed, dictated and finalized at location [facility]. CARE TEACHER IMPRESSION: Cerebral atherosclerosis and chronic small vessel ischemic changes of the cerebral white matter Cerebellar and bilateral thalamic and right periventricular chronic lacunar inf arcts No skull fracture or acute intracranial finding
--- NOTE | ~2021-04-26 | XR_ITS ---
EXAMINATION: XR pelvis 1-2V DATE: 04/26/2021 09:07 INDICATION: Pelvic pain. Fall. TECHNIQUE: An anteroposterior view of the pelvis was obtained. COMPARISON: Pelvis radiograph 08/30/2020 FINDINGS: There is a total left hip arthroplasty in near-anatomic alignment. No periprosthetic lucenc y to suggest loosening or infection. There are old healed fractures of left superior and inferior pub ic rami. No acute fracture. Osteitis pubis is noted. There is mild right hip osteoarthritis. There is lumbar levoscoliosis and moderate spondylosis. IMPRESSION: 1. Total left hip arthroplasty in near-anatomic alignment. 2. Mild right hip osteoarthritis. Reviewed, dictated and finalized at location [facility]. K CLEANER
[2021-04-26 08:52] VITALS: BP 157/101; PULSE 95; RESP 22; TEMP 36.2; O2SAT 97
--- NOTE | 2021-04-26 09:10 | ED.GENADULT ---
HPI - General Adult General Chief complaint: Fall Stated complaint: fall - pelvic pain Source: patient History of Present Illness HPI narrative: Patient is a 86 y/o female complaining of bilateral pelvic pain since she has a fall last night. She states that she fell on her buttocks last night. She describes her pain as sharp and rates it as 8/10. Walking makes her pain worse. However, she is able to walk with some difficulty. She denies other injuries. Related Data Home Medications Medication Instructions Recorded Confirmed lisinopril 10 mg PO HS 04/26/21 04/26/21 Allergies Allergy/AdvReac Type Severity Reaction Status Date / Time No Known Allergies Allergy NONE Verified 04/26/21 09:37 Review of Systems Constitutional: Constitutional: Denies chills, Denies fever(s), Denies headache(s) and Denies weakness Eyes: Eyes: Denies blurry vision ENT: Denies headache(s) and Denies neck pain Cardiovascular: Cardiovascular: Denies chest pain and Denies dyspnea Respiratory: Respiratory: Denies cough and Denies dyspnea Gastrointestinal: Gastrointestinal: Denies abdominal pain, Denies diarrhea, Denies nausea and Denies vomiting Genitourinary: Genitourinary: Denies hematuria and Denies dysuria Musculoskeletal: Musculoskeletal: Reports as per HPI, Denies back pain, Denies neck pain and Reports other (pelvic pain) Neurologic: Denies headache(s) and Denies weakness PMF Past Medical History Medical History Basal cell carcinoma Face Breast cancer screening Counseling on health promotion and disease prevention Encounter for Medicare annual wellness exam Encounter for medication management Generalized osteoarthritis of multiple sites Hammer toe of right foot Hypertension Osteoporosis Osteoporosis screening Rheumatoid arthritis 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 Hands Surgical History Surgical History H/O bilateral cataract extraction H/O hand surgery H/O lateral meniscus repair of left knee History of lumbar laminectomy for spinal cord decompression History of partial hysterectomy History of removal of pigmented skin lesion Basal cell from the face and squamous cell from the hand History of repair of hiatal hernia History of total left hip replacement Family History Family History Sibling Family history of malignant neoplasm Father Malignant neoplasm of prostate, Onset Age: 93 Diabetes mellitus Mother Hypertension Family history of malignant neoplasm of uterus Other Family history of diabetes mellitus in first degree relative Social History Social History Years smoked: 10 Smoking status: Former smoker Second hand tobacco smoke exposure: No Alcohol intake: never Substance use: never Substance use type: does not use Additional occupation/education comments: 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 The patient has 3 children. Abril Pires is her daughter that is a durable power tax attorney for healthcare. The patient is a full code. The patient is . She resides at [facility]. Patient does not use any alcohol marijuana or illicit drugs. The patient used to smoke but quit many years ago. Gender identity (if verbalized by the patient): Female Spiritual care concerns: Yes (Tenriism) Agree to blood products: Yes Exam Const: General: no acute distress and well developed Orientation/consciousness: oriented to person, oriented to place, oriented to time and patient oriented x3 HENMT: Head: normocephalic Ears: external ears normal General nose exam: Normal external nose present Eyes: General: appearance normal, both eyes and all related struc
[2021-04-26 09:32] VITALS: BP 156/100; PULSE 102; RESP 20; O2SAT 94
[2021-04-26 10:35] LABS: Basophils Percent Auto 0.3 % (0.2-1.2); Eosinophils Percent Auto 0.1 % (0-4.4); Hematocrit 38.8 % (37.0-47.0); Immature Granulocyte Absolute 0.02 K/mm3 (0.00-0.031); Immature Granulocyte Percent A 0.3 % (0-0.5); Lymphocytes Absolute Auto 0.63 K/mm3 (0.9-3.2); Lymphocytes Percent Auto 8.3 % (18.3-44.2); Mean Corpuscular HGB Conc 33.5 g/dl (32-36); Mean Corpuscular Hemoglobin 32.3 pg (26-34); Mean Corpuscular Volume 96.3 fl (80-100); Mean Platelet Volume 10.9 fl (7.4-10.4); Monocytes Absolute Auto 0.6 K/mm3 (0.1-0.6); Monocytes Percent Auto 8.3 % (2.6-8.5); Neutrophils Absolute Auto 6.3 K/mm3 (1.3-6.7); Neutrophils Percent Auto 82.7 % (45.5-73.1); Platelet Count Result 188 k/mm3 (150-375); Red Blood Count 4.03 M/mm3 (4.2-5.4); Red Cell Distribution Width 13.3 % (11.5-14.5); White Blood Count 7.6 K/mm3 (4.5-10.0)
[2021-04-26 10:48] LABS: Add Urine Microscopic? YES; Amorphous Sediment Urine Few; Appearance Urine Cloudy (Clear); Bacteria Urine Trace /hpf; Bilirubin Urine Negative (Negative); Blood Urine Negative (Negative); Color Urine Yellow (Yellow); Glucose Urine UA Negative (Negative); Ketones Urine Negative (Negative); Leukocyte Esterase Ur Negative LEU/UL (Negative); Mucus Urine Rare /lpf; Nitrate Urine Negative (Negative); Protein Urine Negative (Negative); RBC Urine 0-2 /hpf (0-2); Specific Grav Ur 1.014 (1.001-1.035); Squamous Epithelial Cell Urine Few /hpf (Few); Urobilinogen Urine Negative mg/dL (<2.0); WBC Urine 0-3 /hpf
[2021-04-26 11:20] VITALS: BP 142/90; PULSE 72; RESP 14; TEMP 36.4; O2SAT 97
[2021-04-26 11:31] LABS: Alanine Aminotransferase 12 U/L (4-35); Albumin Level 3.9 g/dL (3.5-5.1); Alkaline Phosphatase 76 U/L (38-126); Anion Gap 3 mmol/L (8-16); Aspartate Amino Transferase 30 U/L (14-36); Bilirubin,Total 0.8 mg/dL (0.2-1.3); Blood Urea Nitrogen 21 mg/dL (7-17); Calcium 10.4 mg/dL (8.4-10.2); Carbon Dioxide 28 mmol/L (22-30); Chloride 103 mmol/L (98-107); Estimated Glomerular Filt Rate > 60; Glucose 121 mg/dL (65-110); Potassium 4.3 mmol/L (3.4-5.0); Sodium 134 mmol/L (137-145)
[2021-04-26 12:00] VITALS: BP 144/92; PULSE 70; RESP 14; O2SAT 97
[2021-04-26 13:00] VITALS: BP 146/90; PULSE 70; RESP 14; O2SAT 97
[2021-04-26 14:01] VITALS: BP 146/94; PULSE 74; RESP 14; TEMP 36.5
== END 2021-04-26 14:04 | disposition home or self-care (01) ==
PROVIDERS: Emergency Provider Emergency Medicine; PCP Internal Medicine
DX: R10.2 Pelvic and perineal pain (principal); I71.2 Thoracic aortic aneurysm, without rupture; I10 Essential (primary) hypertension; M06.9 Rheumatoid arthritis, unspecified
CPT/HCPCS: 36415; 70450; 72170; 74177; 80053; 81001; 85025; 99284; Q9967

== ENCOUNTER 2021-12-25 09:01 | Observation (INO) | payer MEDICARE, SELFPAY ==
[2021-12-25] VITALS (17 sets, daily range): BP systolic 87–143; BP diastolic 47–75; PULSE 81–109; RESP 12–21; TEMP 36.2–36.6; O2SAT 97–100; BMI 23.1
--- NOTE | 2021-12-25 09:38 | ED.NAVMDI ---
HPI - Nausea/Vomiting/Diarrhea General Chief complaint: Nausea/Vomiting/Diarrhea Stated complaint: I just feel awful Time Seen by Provider: 12/25/21 09:11 History of Present Illness HPI Narrative: 86-year-old female with a history of hypertension and hyperlipidemia presents the emergency room for not feeling well . Patient admits to multiple episodes of nonmelanotic diarrhea since . Patient is also complaining of nausea without vomiting. Denies any abdominal pain or fevers. Related Data Home Medications Medication Instructions Recorded Confirmed lisinopril 10 mg tablet 10 mg PO HS 04/26/21 04/26/21 ascorbic acid (vitamin C) 500 mg 250 mg PO DAILY 05/26/21 tablet aspirin 81 mg chewable tablet 81 mg PO DAILY 05/26/21 calcium carbonate 600 mg calcium 600 mg PO DAILY 05/26/21 (1,500 mg) tablet (Calcium) multivit with 1 tablet PO DAILY 05/26/21 [id number] 8 mg iron-400 mcg-300 mcg tablet (Centrum Silver Women) vit C 250 mg-vit E 90 mg-zinc 40 1 tablet PO BID 05/26/21 mg-copper 1 [id number] capsule (PreserVision AREDS-2) Allergies Allergy/AdvReac Type Severity Reaction Status Date / Time No Known Allergies Allergy NONE Verified 05/26/21 10:35 Review of Systems Review of Systems: CONSTITUTIONAL: Denies fever, chills, or sweats. EYES: Denies visual changes, redness, or discharge. ENT: Denies rhinorrhea, congestion, sore throat, or otalgia. CARDIOVASCULAR: Denies chest pain, palpitations, or edema. RESPIRATORY: Denies cough or dyspnea. GASTROINTESTINAL: Reports nausea, and diarrhea. GENITOURINARY: Denies dysuria or hematuria. SKIN: Denies rash or itching. MUSCULOSKELETAL: Denies back pain, joint pain, or myalgia. NEUROLOGIC: Denies headache, numbness, dizziness, or weakness. PSYCHIATRIC: Denies anxiety or depression. 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 Hands Surgical History Surgical History H/O bilateral cataract extraction H/O hand surgery H/O lateral meniscus repair of left knee History of lumbar laminectomy for spinal cord decompression History of partial hysterectomy History of removal of pigmented skin lesion Basal cell from the face and squamous cell from the hand History of repair of hiatal hernia History of total left hip replacement Family History Family History Sibling Family history of malignant neoplasm Father Malignant neoplasm of prostate, Onset Age: 93 Diabetes mellitus Mother Hypertension Family history of malignant neoplasm of uterus Other Family history of diabetes mellitus in first degree relative Social History Social History Years smoked: 10 Smoking status: Former smoker Second hand tobacco smoke exposure: No Alcohol intake: never Substance use: never Substance use type: does not use Additional occupation/education comments: 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 The patient has 3 children. Abril Pires is her daughter that is a durable power workers compensation attorney for healthcare. The patient is a full code. The patient is . She resides at [facility]. Patient does not use any alcohol marijuana or illicit drugs. The patient used to smoke but quit many years ago. Gender identity (if verbalized by the patie
[2021-12-25 09:55] LABS: Basophils Percent Auto 0.5 % (0.2-1.2); Eosinophils Percent Auto 0.5 % (0-4.4); Immature Granulocyte Absolute 0.03 K/mm3 (0.00-0.031); Immature Granulocyte Percent A 0.5 % (0-0.5); Lymphocytes Absolute Auto 0.72 K/mm3 (0.9-3.2); Lymphocytes Percent Auto 10.9 % (18.3-44.2); Mean Corpuscular HGB Conc 29.6 g/dl (32-36); Mean Corpuscular Hemoglobin 29.5 pg (26-34); Mean Corpuscular Volume 99.5 fl (80-100); Mean Platelet Volume 10.4 fl (7.4-10.4); Monocytes Absolute Auto 0.7 K/mm3 (0.1-0.6); Monocytes Percent Auto 11.1 % (2.6-8.5); Neutrophils Percent Auto 76.5 % (45.5-73.1); Platelet Count Result 270 k/mm3 (150-375); Red Cell Distribution Width 17.3 % (11.5-14.5); White Blood Count 6.6 K/mm3 (4.5-10.0)
[2021-12-25 09:59] LABS: Hematocrit 18.9 % (37.0-47.0); Hemoglobin 5.6 g/dL (12.0-15.0)
[2021-12-25 10:12] LABS: Platelet Estimate Adequate (Adequate)
[2021-12-25 10:13] LABS: Anisocytosis 2+ (NORMAL); Poikilocytosis 1+ (NORMAL); Schistocytes None Seen (NORMAL)
[2021-12-25 10:16] LABS: Alanine Aminotransferase 13 U/L (6-35); Albumin Level 3.2 g/dL (3.5-5.1); Alkaline Phosphatase 61 U/L (38-126); Anion Gap 9 mmol/L (8-16); Aspartate Amino Transferase 20 U/L (14-36); Bilirubin,Total 0.2 mg/dL (0.2-1.3); Blood Urea Nitrogen 25 mg/dL (7-17); Calcium 8.1 mg/dL (8.4-10.2); Carbon Dioxide 21 mmol/L (22-30); Chloride 105 mmol/L (98-107); Estimated Glomerular Filt Rate > 60; Glucose 157 mg/dL (65-110); Lipase 111 U/L (23-300); Potassium 4.4 mmol/L (3.4-5.0); Sodium 135 mmol/L (137-145)
[2021-12-25] MEDS: SODIUM CHLORIDE 0.9% IV 500 ML 999 ML IV CONT (10:22)
[2021-12-25 11:04] LABS: Appearance Urine Clear (Clear); Bilirubin Urine Negative (Negative); Blood Urine Negative (Negative); Color Urine Yellow (Yellow); Glucose Urine UA Negative (Negative); Ketones Urine Trace mg/dL (Negative); Leukocyte Esterase Ur 2+ LEU/UL (Negative); Nitrate Urine Negative (Negative); Protein Urine Negative (Negative); Specific Grav Ur 1.015 (1.001-1.035)
[2021-12-25 11:05] LABS: Bacteria Urine 1+ /hpf; Mucus Urine Rare /lpf; WBC Urine >75 /hpf
[2021-12-25 11:07] LABS: Add Urine Microscopic? YES
[2021-12-25 11:14] LABS: Lactic Acid Reflex 2.5 mmol/L (0.7-2.0)
[2021-12-25 11:18] LABS: INR 1.4; Prothrombin Time 16.4 Seconds (11.1-14.7)
[2021-12-25] MEDS: TUBING, BLOOD PLUM PUMP TUBING 1 EACH XX (12:54)
[2021-12-25] MEDS: SODIUM CHLORIDE 0.9% IV 250 ML 30 ML IV CONT (12:54)
--- NOTE | 2021-12-25 13:43 | ADMGEN ---
This patient, Belem Duran, was admitted to Medical Room 251-01. Patient/family oriented to hospital policies and general routines including ID bracelet, bed and alarms, visiting hours, pain management, procedures, bathroom and other care routines, personal items, smoking policy, room service/diet, and visiting hours. Information on how to activate the Rapid Response Team has been discussed. Patient/Family are encouraged to report perceived risks to care and to ask questions if they do not understand what they are told or what they should do.
[2021-12-25 14:03] LABS: Reflex Lactic Acid Yes or No Add Lactic
[2021-12-25] MEDS: polyethylene glycoL 3350 238 GM BOTTLE PO (18:30)
[2021-12-25] MEDS: BISACODYL 5 MG TABLET EC 20 MG PO (18:30)
--- NOTE | 2021-12-25 19:00 | PM.IMHP ---
H&P: HPI History of Present Illness Date/Time: 12/25/21 19:00 Chief Complaint: Weakness and diarrhea. Narrative: This is a very pleasant 86-year-old female with hypertension and hyperlipidemia who presented to the emergency department for evaluation of weakness and diarrhea. She has not been feeling well since last with several nonbloody, non melanotic loose stools a day, nausea, and decreased appetite. ?I just feel puny and she has become progressively more weak as the days have gone on. Workup in the emergency department was significant for a hemoglobin and hematocrit of 5.6 and 18.9% respectively and lactic acid level of 2.5. Stool was Hemoccult positive on rectal exam done in the ED and she is being admitted in this setting for further treatment evaluation. At the time my evaluation she is resting comfortably and has no complaints. She denies syncope, presyncope, chest pain, palpitations, shortness of breath, epigastric and abdominal pain, distension, belching, hematemesis, hematochezia, and melena. Review of Systems Review of Systems: Twelve systems were reviewed. No fever, chills, or sweats. No recent cold or flu symptoms. No sick contacts. She has not been on any recent antibiotics and she denies recent travel. She has not noticed any mucus in the stool. Except as documented, all other systems were reviewed and are negative. 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 Family History Family History Sibling Family history of malignant neoplasm Father Malignant neoplasm of prostate, Onset Age: 93 Diabetes mellitus Mother Hypertension Family history of malignant neoplasm of uterus Other Family history of diabetes mellitus in first degree relative Social History Social History (Updated 12/25/21 @ 14:46 by Mei Wheeler PA-C) Social History: Surrogate medical decision maker: Abril Pires, daughter. Code status: Full code. Years smoked: 10 Smoking status: Former smoker Second hand tobacco smoke exposure: No Alcohol intake: never Substance use: never Substance use type: does not use Additional living arrangements comments: . Lives in independent living. 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 Meds Home Medications and Allergies Home Medications Medication Instructions Recorded Confirmed Type pravastatin 10 mg tablet 10 mg PO DAILY #90 tabs 01/18/21 12/25/21 Rx lisinopril 10 mg tablet 5 mg PO HS 04/26/21 12/25/21 History ascorbic acid (vitamin C) 500 mg 250 mg PO DAILY 05/26/21 12/25/21 History tablet aspirin 81 mg chewable tablet 81 mg PO HS 05/26/21 12/25/21 History calcium carbonate 600 mg calcium 600 mg PO QMWFSA 05/26/21 12/25/21 History (1,500 mg) tablet (Calcium) multivit with 1 tablet PO DAILY 05/26/21 12/25/21 History lhikjkmu-twfk-TM-lutein 8 mg iron-400 mcg-300 mcg tablet (Centrum Silver Women) vit C 250 mg-vit E 90 mg-zinc 40 1 tablet PO BID 05/26/21 12/25/21 History mg-copper 1 rn-vmcnqo-ekgpig capsule (PreserVision AREDS-2) Allergies Allergy/AdvReac Type Severity Reaction Status Date / Time No Known Allergies Allergy NONE Verified 12/25/21 14:22
[2021-12-25 19:16] LABS: Hematocrit 27.5 % (37.0-47.0); Hemoglobin 8.6 g/dL (12.0-15.0)
[2021-12-25 19:33] LABS: Lactic Acid 1.7 mmol/L (0.7-2.0)
[2021-12-26] VITALS (13 sets, daily range): BP systolic 91–169; BP diastolic 54–92; PULSE 73–99; RESP 14–21; TEMP 36.3–37.1; O2SAT 95–100
--- NOTE | 2021-12-26 00:37 | ECHO_ITS ---
Patient Info Name: Belem Duran Age: 86 years : 1935 Gender: Female Ht: 59 in Wt: 114 lbs BSA: 1.48 m2 HR: 90 bpm BP: 146 / 73 mmHg Heart Rhythm: Sinus Rhythm Technical Quality: Fair Exam Date: 12/26/2021 3:02 PM Exam Location: [facility] Pulmonary Patient Status: Outpatient Admit Date: 12/25/2021 Staff Ordering Physician: Mei Wheeler PA-C Customs Investigator: Alexsandra Duron RDCS Attending Provider: Mahin Chavez MD Referring Physician: Summer MUNIZ; Exam Type: CA echo doppler color flow Study Info Indications - Hypertension, hyperlipidemia, uss murmur Complete two-dimensional, color flow and Doppler transthoracic echocardiogram is performed. Summary 1. Complete two-dimensional, color flow and Doppler transthoracic echocardiogram is performed. 2. Left ventricular systolic function is normal, estimated at 60-65%. 3. There is basal septal hypertrophy. 4. Left atrial chamber dimension is severely enlarged. 5. The aortic valve is not well visualized. 6. There is mild to moderate aortic valve stenosis with a mean gradient of 7 mmHg and aortic valve area of 1.0 cm2. 7. There is moderate aortic valve regurgitation. 8. There is moderate aortic valve calcification. 9. The mitral valve has thickened leaflets, calcified leaflets, calcified annulus and restricted posterior leaflet motion. 10. There is at least moderate mitral valve regurgitation, however, this may be underestimated. 11. The mitral valve annulus is moderately calcified. 12. The aortic root size at the sinus of Valsalva is mildly dilated. Left Ventricle There is basal septal hypertrophy. Left ventricular chamber dimension is normal. Left ventricular systolic function is normal, estimated at 60-65%. There is mildly increased left ventricular wall thickness. The left ventricular diastolic function is grade I diastolic dysfunction. Right Ventricle Right ventricular chamber dimension is normal. Right ventricular systolic function is normal. Left Atria Left atrial chamber dimension is severely enlarged. Right Atria Right atrial chamber dimension is normal. Aortic Valve The aortic valve is not well visualized. There is mild to moderate aortic valve stenosis with a mean gradient of 7 mmHg and aortic valve area of 1.0 cm2. There is moderate aortic valve regurgitation. There is moderate aortic valve calcification. Pulmonic Valve The pulmonic valve is not well visualized. Mitral Valve The mitral valve has thickened leaflets, calcified leaflets, calcified annulus and restricted posterior leaflet motion. There is no mitral valve stenosis. There is at least moderate mitral valve regurgitation, however, this may be underestimated. There is moderate mitral valve calcification. The mitral valve annulus is moderately calcified. Tricuspid Valve The tricuspid valve leaflets are not well visualized. There is no significant tricuspid valve stenosis. There is mild tricuspid valve regurgitation. Pericardium/Pleural There is trivial pericardial effusion. Inferior Vena Cava Normal inferior vena cava with >50% collapse upon inspiration consistent with normal right atrial pressure, 3 mmHg. Aorta The aortic root size at the sinus of Valsalva is mildly dilated. Left Ventricular Outflow Tract Name Value Normal
[2021-12-26 05:02] LABS: Hematocrit 27.9 % (37.0-47.0); Hemoglobin 8.8 g/dL (12.0-15.0); Mean Corpuscular HGB Conc 31.5 g/dl (32-36); Mean Corpuscular Hemoglobin 28.7 pg (26-34); Mean Corpuscular Volume 90.9 fl (80-100); Mean Platelet Volume 10.1 fl (7.4-10.4); Platelet Count Result 233 k/mm3 (150-375); Red Blood Count 3.07 M/mm3 (4.2-5.4); Red Cell Distribution Width 18.4 % (11.5-14.5); White Blood Count 6.7 K/mm3 (4.5-10.0)
[2021-12-26 05:16] LABS: Anion Gap 10 mmol/L (8-16); Blood Urea Nitrogen 15 mg/dL (7-17); Calcium 7.9 mg/dL (8.4-10.2); Carbon Dioxide 21 mmol/L (22-30); Chloride 106 mmol/L (98-107); Estimated Glomerular Filt Rate > 60; Glucose 78 mg/dL (65-110); Magnesium 2.1 mg/dL (1.6-2.3); Potassium 3.9 mmol/L (3.4-5.0); Sodium 137 mmol/L (137-145)
[2021-12-26] MEDS: polyethylene glycoL 3350 17 GM POWD.PACK PO (09:07)
[2021-12-26] MEDS: PANTOPRAZOLE SODIUM IV 40 MG VIAL IV PUSH (09:07)
[2021-12-26] MEDS: SODIUM CHLORIDE 0.9% IV 1,000 ML 75 ML IV CONT (09:11)
[2021-12-26 09:20] LABS: Vitamin D 25 Hydroxy 38.9 ng/mL
--- NOTE | 2021-12-26 10:55 | PM.IMPN ---
Progress Note: A&P Assessment and Plan (1) Anemia: Code(s): D64.9 - Anemia, unspecified Status: Acute Assessment and Plan: Patient presented to the ED for evaluation of generalized weakness. She was found to have hemoglobin 5.6 and hematocrit 18.9%, BUN to creatinine ratio greater than 30. Fecal occult blood positive. Previous hemoglobin 13 on 04/26/2021. S/p 2 units packed red blood cells With improved hemoglobin 8.8 check iron panel, reticulocyte count, ferritin, LDH, haptoglobin, B12, and folate GI consulted appreciate recommendations as below (2) Occult GI bleeding: Code(s): R19.5 - Other fecal abnormalities Status: Acute Assessment and Plan: patient with new anemia H&H 5.6/18.9% on admission. Fecal occult positive in ED. Patient was symptomatic upon presentation. Started on a Protonix drip in the ED GI consulted and patient prepped for colonoscopy and EGD. EGD shows reflux esophagitis, grade 3 to distal esophagus with background of salmon-colored mucosa suggestive of Villarreal's esophagus. Biopsies taken and pending. hiatal hernia with evidence of previous Linda Colonoscopy with multiple diverticula noted but no active bleeding, no AVMs, no colitis. Two 3-4 mm polyps in the transverse colon were cold snared and excised. Few internal hemorrhoids noted that were not actively bleeding b.i.d. Protonix recommended for esophagitis. Monitor H&H closely findings thought to be secondary to EGD findings per report (3) Abnormal urinalysis: Code(s): R82.90 - Unspecified abnormal findings in urine Status: Acute Assessment and Plan: UA with 2+ leukocytes, greater than 75 wbc's and 1+ bacteria. She denies suprapubic tenderness or flank pain. No leukocytosis or fever noted. Lactic acid was 2.5 on admission however this may be secondary to acute GI bleed. Urine culture pending hold off on antibiotics at this time likely asymptomatic bacteriuria (4) Hypertension: Qualifiers: Hypertension type: primary hypertension Qualified Code(s): I10 - Essential (primary) hypertension Code(s): I10 - Essential (primary) hypertension Status: Chronic Assessment and Plan: chronic, stable, BP 139/73, HR is 78 Resume lisinopril at home dose Monitor vitals (5) Hyperlipidemia: Qualifiers: Hyperlipidemia type: unspecified Qualified Code(s): E78.5 - Hyperlipidemia, unspecified Code(s): E78.5 - Hyperlipidemia, unspecified Status: Chronic Assessment and Plan: chronic, continue pravastatin (6) Cardiac murmur: Code(s): R01.1 - Cardiac murmur, unspecified Status: Acute Assessment and Plan: new, noted on physical exam, systolic murmur loudest at right sternal border. She denies prior history of known murmur. Transthoracic echocardiogram ordered and pending. Murmur may be worsened by acute anemia. Plan code status: Full code Disposition: Return to independent living Diet: Regular diet GI prophylaxis as above Time Spent With Patient Time with patient: 15 - 25 minutes Subjective Date/time seen: 12/26/21 10:55 Patient found lying in bed. She reports feeling better today than yesterday. She presented to the ED with complaints of generalized weakness that is somewhat improved. She denies dizziness, chest pain, shortness a breath, palpitations, melena, hematochezia, hematemesis, or loose stool today. She does endorse nausea without emesis. She reports taking a baby aspirin daily but denies any recent NSAID use. She denies any known valvular disease or murmur. Review of Systems Review of Systems: All systems reviewed & are unremarkable except as noted in HPI and below Exam Narrative: General: Well-developed, older adult female lying in bed, no distress, nontoxic-appearing HEENT: normocephalic, atraumatic, PERRL, EOMI. Sclera anicteric. Pale conjunctiva. moist
--- NOTE | 2021-12-26 13:04 | PC.NURSE ---
patient down to GI lab
[2021-12-26] MEDS: LACTATED RINGERS 1,000 ML 150 ML IV CONT (13:11)
--- NOTE | 2021-12-26 13:27 | WPDGICN ---
Assessment and Plan Assessment and plan (1) Occult GI bleeding: Code(s): R19.5 - Other fecal abnormalities Status: Acute Assessment and Plan: will proceed with egd and colonoscopy to check source of anemia and presentation with occult blood in stool (2) Acute blood loss anemia: Code(s): D62 - Acute posthemorrhagic anemia Status: Acute Assessment and Plan: denies previous blood transfusion, she is feeling better now after blood transfusion continue to monitor (3) Diarrhea: Code(s): R19.7 - Diarrhea, unspecified Status: Acute Assessment and Plan: will proceed with colonoscopy (4) Hypertension: Code(s): I10 - Essential (primary) hypertension Status: Chronic GI Consult Note Consult date/time: 12/26/21 13:27 Reason for consult: acute blood loss anemia, FOBT + HPI: Belem Duran is a 86 year old female with hypertension and hyperlipidemia who is very functional and independent for her age, she lives in [facility]. She came to the emergency department for evaluation of progressive weakness and lightheadedness for almost 2 weeks, recently also noted diarrhea. She has not been feeling well and ?I just feel puny . She was found to have significant anemia with a hemoglobin and hematocrit of 5.6 and 18.9% respectively and lactic acid level of 2.5. Stool was Hemoccult positive on rectal exam. Denies overt gib, no abdominal pain, no hematemesis. She had hiatal hernia surgery and used to have regularly colonoscopies although last one 10 years ago- told that did not need any more. Denies nsaid's, blood thinners only baby aspirin. Review of Systems Review of Systems: CONSTITUTIONAL: Denies fever, chills, or sweats. EYES: Denies visual changes, redness, or discharge. ENT: Denies rhinorrhea, congestion, sore throat, or otalgia. CARDIOVASCULAR: Denies chest pain, palpitations, or edema. RESPIRATORY: Denies cough or dyspnea. GASTROINTESTINAL: Reports nausea, and diarrhea. GENITOURINARY: Denies dysuria or hematuria. SKIN: Denies rash or itching. MUSCULOSKELETAL: Denies back pain, joint pain, or myalgia. NEUROLOGIC: Denies headache, numbness, dizziness, or weakness. PSYCHIATRIC: Denies anxiety or depression. 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 Family History Family History Sibling Family history of malignant neoplasm Father Malignant neoplasm of prostate, Onset Age: 93 Diabetes mellitus Mother Hypertension Family history of malignant neoplasm of uterus Other Family history of diabetes mellitus in first degree relative Social History Social History (Updated 12/25/21 @ 14:46 by Mei Wheeler PA-C) Social History: Surrogate medical decision maker: Abril Pires, daughter. Code status: Full code. Years smoked: 10 Smoking status: Former smoker Second hand tobacco smoke exposure: No Alcohol intake: never Substance use: never Substance use type: does not use Additional living arrangements comments: . Lives in independent living. 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 Meds Home Medications and Allergies Ho
--- NOTE | 2021-12-26 13:29 | WPDANESEPP ---
Anes - Eval Pre Procedure Procedure: Operation Date: 12/26/21 14:30 Proposed Procedures p Esophagogastroduodenoscopy & Colonoscopy - Diogenes De Leon MD Date/Time: 12/26/21 13:29 Pre Op Diagnosis: GI Bleed Patient Data Age: 86 Gender: F Height: 1.5 m Weight: 55.4 kg Last Vital Signs Temp 98.7 F 12/26/21 13:14 Pulse 99 12/26/21 13:14 Resp 16 12/26/21 13:14 BP 169/92 H 12/26/21 13:14 Pulse Ox 98 12/26/21 13:14 O2 Del Method Room Air 12/26/21 13:14 Allergies Allergy/AdvReac Type Severity Reaction Status Date / Time No Known Allergies Allergy NONE Verified 12/26/21 13:14 Home Medications Medication Instructions Recorded Confirmed Type pravastatin 10 mg tablet 10 mg PO DAILY #90 tabs 01/18/21 12/25/21 Rx lisinopril 10 mg tablet 5 mg PO HS 04/26/21 12/25/21 History ascorbic acid (vitamin C) 500 mg 250 mg PO DAILY 05/26/21 12/25/21 History tablet aspirin 81 mg chewable tablet 81 mg PO HS 05/26/21 12/25/21 History calcium carbonate 600 mg calcium 600 mg PO QMWFSA 05/26/21 12/25/21 History (1,500 mg) tablet (Calcium) multivit with 1 tablet PO DAILY 05/26/21 12/25/21 History jqpbiajq-erqd-WK-lutein 8 mg iron-400 mcg-300 mcg tablet (Centrum Silver Women) vit C 250 mg-vit E 90 mg-zinc 40 1 tablet PO BID 05/26/21 12/25/21 History mg-copper 1 [id number]-vcvnhm-mdelhh capsule (PreserVision AREDS-2) Laboratory Tests 12/25/21 12/25/21 12/25/21 10:59 19:04 19:04 WBC RBC Hgb 8.6 g/dL L D g/dL (12.0-15.0) Hct 27.5 % L % (37.0-47.0) MCV MCH MCHC RDW Plt Count MPV Sodium Potassium Chloride Carbon Dioxide Anion Gap BUN Creatinine Estim Creat Clear Calc Estimated GFR Glucose Lactic Acid 1.7 mmol/L mmol/L (0.7-2.0) Calcium Magnesium Vitamin D 25-Hydroxy TSH (Reflex) Blood Type A Positive Antibody Screen Negative Crossmatch See Detail 12/26/21 12/26/21 12/26/21 04:44 04:46 04:46 WBC 6.7 K/mm3 K/mm3 (4.5-10.0) RBC 3.07 M/mm3 L M/mm3 (4.2-5.4) Hgb 8.8 g/dL L g/dL (12.0-15.0) Hct 27.9 % L % (37.0-47.0) MCV 90.9 fl D fl (80-100) MCH 28.7 pg pg (26-34) MCHC 31.5 g/dl L g/dl (32-36) RDW 18.4 % H % (11.5-14.5) Plt Count 233 k/mm3 k/mm3 (150-375) MPV 10.1 fl fl (7.4-10.4) Sodium 137 mmol/L mmol/L (137-145) Potassium 3.9 mmol/L mmol/L (3.4-5.0) Chloride 106 mmol/L mmol/L (98-107) Carbon Dioxide 21 mmol/L L mmol/L (22-30) Anion Gap 10 mmol/L mmol/L (8-16) BUN 15 mg/dL D mg/dL (7-17) Creatinine 0.70 mg/dL mg/dL (0.7-1.0) Estim Creat Clear Calc Not Reportable Estimated GFR > 60 (59 - ) Glucose 78 mg/dL mg/dL (65-110) Lactic Acid Calcium 7.9 mg/dL L mg/dL (8.4-10.2) Magnesium 2.1 mg/dL mg/dL (1.6-2.3) Vitamin D 25-Hydroxy 38.9 ng/mL ng/mL TSH (Reflex) Blood Type Antibody Screen Crossmatch 12/26/21 04:46 WBC RBC Hgb Hct MCV MCH MCHC RDW Plt Count MPV Sodium Potassium Chloride Carbon Dioxide Anion Gap BUN Creatinine Estim Creat Clear Calc Estimated GFR Glucose Lactic Acid Calcium Magnesium Vitamin D 25-Hydroxy TSH (Reflex) 1.760 uIU/mL uIU/mL (0.465-4.68) Blood Type Antibody Screen Crossmatch Patient hx anes
--- NOTE | 2021-12-26 13:38 | WPDANESEPPF ---
Anes - Initial Pre Proc Eval Procedure: Operation Date: 12/26/21 14:30 Proposed Procedures p Esophagogastroduodenoscopy & Colonoscopy - Diogenes De Leon MD Date/Time: 12/26/21 13:38 Surgeon: Dariel Chavez MD Pre Op Diagnosis: GI Bleed Patient Data Age: 86 Gender: F Height: 1.5 m Weight: 55.4 kg Last Vital Signs Temp 98.7 F 12/26/21 13:14 Pulse 99 12/26/21 13:14 Resp 16 12/26/21 13:14 BP 169/92 H 12/26/21 13:14 Pulse Ox 98 12/26/21 13:14 O2 Del Method Room Air 12/26/21 13:14 Allergies Allergy/AdvReac Type Severity Reaction Status Date / Time No Known Allergies Allergy NONE Verified 12/26/21 13:14 Home Medications Medication Instructions Recorded Confirmed Type pravastatin 10 mg tablet 10 mg PO DAILY #90 tabs 01/18/21 12/25/21 Rx lisinopril 10 mg tablet 5 mg PO HS 04/26/21 12/25/21 History ascorbic acid (vitamin C) 500 mg 250 mg PO DAILY 05/26/21 12/25/21 History tablet aspirin 81 mg chewable tablet 81 mg PO HS 05/26/21 12/25/21 History calcium carbonate 600 mg calcium 600 mg PO QMWFSA 05/26/21 12/25/21 History (1,500 mg) tablet (Calcium) multivit with 1 tablet PO DAILY 05/26/21 12/25/21 History vhvccaoy-icjj-GA-lutein 8 mg iron-400 mcg-300 mcg tablet (Centrum Silver Women) vit C 250 mg-vit E 90 mg-zinc 40 1 tablet PO BID 05/26/21 12/25/21 History mg-copper 1 is-ufpgba-zmdfwj capsule (PreserVision AREDS-2) Laboratory Tests 12/25/21 12/25/21 12/25/21 10:59 19:04 19:04 WBC RBC Hgb 8.6 g/dL L D g/dL (12.0-15.0) Hct 27.5 % L % (37.0-47.0) MCV MCH MCHC RDW Plt Count MPV Sodium Potassium Chloride Carbon Dioxide Anion Gap BUN Creatinine Estim Creat Clear Calc Estimated GFR Glucose Lactic Acid 1.7 mmol/L mmol/L (0.7-2.0) Calcium Magnesium Vitamin D 25-Hydroxy TSH (Reflex) Blood Type A Positive Antibody Screen Negative Crossmatch See Detail 12/26/21 12/26/21 12/26/21 04:44 04:46 04:46 WBC 6.7 K/mm3 K/mm3 (4.5-10.0) RBC 3.07 M/mm3 L M/mm3 (4.2-5.4) Hgb 8.8 g/dL L g/dL (12.0-15.0) Hct 27.9 % L % (37.0-47.0) MCV 90.9 fl D fl (80-100) MCH 28.7 pg pg (26-34) MCHC 31.5 g/dl L g/dl (32-36) RDW 18.4 % H % (11.5-14.5) Plt Count 233 k/mm3 k/mm3 (150-375) MPV 10.1 fl fl (7.4-10.4) Sodium 137 mmol/L mmol/L (137-145) Potassium 3.9 mmol/L mmol/L (3.4-5.0) Chloride 106 mmol/L mmol/L (98-107) Carbon Dioxide 21 mmol/L L mmol/L (22-30) Anion Gap 10 mmol/L mmol/L (8-16) BUN 15 mg/dL D mg/dL (7-17) Creatinine 0.70 mg/dL mg/dL (0.7-1.0) Estim Creat Clear Calc Not Reportable Estimated GFR > 60 (59 - ) Glucose 78 mg/dL mg/dL (65-110) Lactic Acid Calcium 7.9 mg/dL L mg/dL (8.4-10.2) Magnesium 2.1 mg/dL mg/dL (1.6-2.3) Vitamin D 25-Hydroxy 38.9 ng/mL ng/mL TSH (Reflex) Blood Type Antibody Screen Crossmatch 12/26/21 04:46 WBC RBC Hgb Hct MCV MCH MCHC RDW Plt Count MPV Sodium Potassium Chloride Carbon Dioxide Anion Gap BUN Creatinine Estim Creat Clear Calc Estimated GFR Glucose Lactic Acid Calcium Magnesium Vitamin D 25-Hydroxy TSH (Reflex) 1.760 uIU/mL uIU/mL (0.465-4.68) Blood Type Antibody Screen
--- NOTE | 2021-12-26 13:54 | SUR.OPER ---
egd ended at 1348 and colon started at 1354
--- NOTE | 2021-12-26 14:35 | PC.NURSE ---
patient returned to floor
[2021-12-26 16:03] LABS: Hematocrit 32.3 % (37.0-47.0)
[2021-12-26 16:17] LABS: Immature Reticulocyte Fraction 29.3 % (3.0-15.9); Reticulocyte Hemoglobin Conten 22.4 pg (28.2-35.7); Reticulocyte Percent 5.51 % (0.7-4.3); Reticulocytes Absolute 0.19 B/L (32.2-175.7)
[2021-12-26 20:01] LABS: Lactate Dehydrogenase 177 U/L (120-246)
[2021-12-26] MEDS: PANTOPRAZOLE 40 MG TABLET PO (20:20)
[2021-12-26] MEDS: lisinopriL 5 MG TABLET PO (20:20)
[2021-12-26 20:24] LABS: Iron 22 ug/dL (37-170)
[2021-12-26 20:33] LABS: Percent Iron Saturation 6 % (20-50)
[2021-12-27] VITALS (8 sets, daily range): BP systolic 117–119; BP diastolic 61–63; PULSE 78–97; RESP 16–20; TEMP 36.4; O2SAT 94–98
[2021-12-27 05:21] LABS: Basophils Percent Auto 0.7 % (0.2-1.2); Eosinophils Absolute Auto 0.3 K/mm3 (0-0.3); Eosinophils Percent Auto 4.5 % (0-4.4); Hematocrit 26.9 % (37.0-47.0); Hemoglobin 8.3 g/dL (12.0-15.0); Immature Granulocyte Absolute 0.02 K/mm3 (0.00-0.031); Immature Granulocyte Percent A 0.4 % (0-0.5); Lymphocytes Absolute Auto 0.84 K/mm3 (0.9-3.2); Lymphocytes Percent Auto 15.1 % (18.3-44.2); Mean Corpuscular HGB Conc 30.9 g/dl (32-36); Mean Corpuscular Hemoglobin 28.6 pg (26-34); Mean Corpuscular Volume 92.8 fl (80-100); Mean Platelet Volume 10.2 fl (7.4-10.4); Monocytes Absolute Auto 0.6 K/mm3 (0.1-0.6); Neutrophils Absolute Auto 3.8 K/mm3 (1.3-6.7); Neutrophils Percent Auto 68.3 % (45.5-73.1); Platelet Count Result 217 k/mm3 (150-375); White Blood Count 5.6 K/mm3 (4.5-10.0)
[2021-12-27 05:27] LABS: Anion Gap 4 mmol/L (8-16); Blood Urea Nitrogen 12 mg/dL (7-17); Carbon Dioxide 22 mmol/L (22-30); Chloride 110 mmol/L (98-107); Estimated Glomerular Filt Rate > 60; Glucose 81 mg/dL (65-110); Sodium 136 mmol/L (137-145)
[2021-12-27 06:32] LABS: Folic Acid > 20.0 ng/mL (2.76->20)
[2021-12-27] MEDS: PANTOPRAZOLE 40 MG TABLET PO (08:20)
[2021-12-27] MEDS: PRAVASTATIN SODIUM 10 MG TABLET PO (08:20)
[2021-12-27] MEDS: ASCORBIC ACID 250 MG TABLET PO (08:20)
--- NOTE | 2021-12-27 09:23 | WPDANESPN ---
Anes - Prog Note Post-Op Date/Time: 12/27/21 09:23 Cardiovascular status: other (anemia) Respiratory status: normal Airway patency: baseline Mental status: baseline Post-Op hydration status: normal Vital Signs: Last Vital Signs Temp 97.6 F 12/27/21 05:05 Pulse 87 12/27/21 05:05 Resp 16 12/27/21 05:05 BP 119/61 12/27/21 05:05 Pulse Ox 95 12/27/21 05:05 O2 Del Method Room Air 12/26/21 14:27 Pain Score (VAS): 0/10 I/O: Intake & Output 12/26/21 12/27/21 12/27/21 23:59 07:59 15:59 Intake Total 1220 250 Output Total 400 Balance 820 250 Laboratory Tests 12/27/21 04:51 12/27/21 04:51 12/26/21 12/26/21 12/26/21 15:56 15:56 19:40 WBC RBC Hgb 10.0 L Hct 32.3 L MCV MCH MCHC RDW Plt Count MPV Immature Gran % (Auto) Neut % (Auto) Lymph % (Auto) Drew % (Auto) Eos % (Auto) Baso % (Auto) Lymph # (Auto) Drew # (Auto) Eos # (Auto) Baso # (Auto) Abs Immat Gran (auto) Absolute Neuts (auto) Absolute Nucleated RBC Nucleated RBC % Absolute Retic 0.19 L Percent Retic 5.51 H Immature Retic Fraction 29.3 H Retic Hgb Content 22.4 L Haptoglobin Sodium Potassium Chloride Carbon Dioxide Anion Gap BUN Creatinine Estim Creat Clear Calc Estimated GFR Glucose Calcium Iron 22 L TIBC 387 % Saturation 6 L Ferritin 12.20 Lactate Dehydrogenase Vitamin B12 Folate 12/26/21 12/26/21 12/27/21 19:40 19:40 04:51 WBC 5.6 RBC 2.90 L Hgb 8.3 L Hct 26.9 L MCV 92.8 MCH 28.6 MCHC 30.9 L RDW 18.0 H Plt Count 217 MPV 10.2 Immature Gran % (Auto) 0.4 Neut % (Auto) 68.3 Lymph % (Auto) 15.1 L Drew % (Auto) 11.0 H Eos % (Auto) 4.5 H Baso % (Auto) 0.7 Lymph # (Auto) 0.84 L Drew # (Auto) 0.6 Eos # (Auto) 0.3 Baso # (Auto) 0.0 Abs Immat Gran (auto) 0.02 Absolute Neuts (auto) 3.8 Absolute Nucleated RBC 0.0 Nucleated RBC % 0.0 Absolute Retic Percent Retic Immature Retic Fraction Retic Hgb Content Haptoglobin Pending Sodium Potassium Chloride Carbon Dioxide Anion Gap BUN Creatinine Estim Creat Clear Calc Estimated GFR Glucose Calcium Iron TIBC % Saturation Ferritin Lactate Dehydrogenase 177 Vitamin B12 Folate 12/27/21 04:51 WBC RBC Hgb Hct MCV MCH MCHC RDW Plt Count MPV Immature Gran % (Auto) Neut % (Auto) Lymph % (Auto) Drew % (Auto) Eos % (Auto) Baso % (Auto) Lymph # (Auto) Drew # (Auto) Eos # (Auto) Baso # (Auto) Abs Immat Gran (auto) Absolute Neuts (auto) Absolute Nucleated RBC Nucleated RBC % Absolute Retic Percent Retic Immature Retic Fraction Retic Hgb Content Haptoglobin Sodium 136 L Potassium 4.0 Chloride 110 H Carbon Dioxide 22 Anion Gap 4 L BUN 12 Creatinine 0.80 Estim Creat Clear Calc Not Reportable Estimated GFR > 60 Glucose 81 Calcium 8.0 L Iron TIBC % Saturation Ferritin Lactate Dehydrogenase Vitamin B12 933.0 H Folate > 20.0 H Microbiology 12/25/21 10:52 Clean Catch Midstream Urine Culture - Preliminary Gram negative bacilli isolated Post-procedural complaints: none Patient Feedback: Patient satisfied with anesthetic care.
--- NOTE | 2021-12-27 10:00 | PM.DS ---
DS: Admitting Diagnosis Discharge Date 12/27/21 1000 Admitting Diagnosis Acute blood loss anemia, UTI, GI Bleed DS: Discharge Diagnosis Discharge Diagnosis (1) Anemia: Code(s): D64.9 - Anemia, unspecified Status: Acute Assessment and Plan: Patient presented to the ED for evaluation of generalized weakness. She was found to have hemoglobin 5.6 and hematocrit 18.9%, BUN to creatinine ratio greater than 30. Fecal occult blood positive. Previous hemoglobin 13 on 04/26/2021. S/p 2 units packed red blood cells With improved hemoglobin 8.8 check iron panel, reticulocyte count, ferritin, LDH, haptoglobin, B12, and folate GI consulted appreciate recommendations as below (2) Occult GI bleeding: Code(s): R19.5 - Other fecal abnormalities Status: Acute Assessment and Plan: patient with new anemia H&H 5.6/18.9% on admission. Fecal occult positive in ED. Patient was symptomatic upon presentation. Started on a Protonix drip in the ED GI consulted and patient prepped for colonoscopy and EGD. EGD shows reflux esophagitis, grade 3 to distal esophagus with background of salmon-colored mucosa suggestive of Villarreal's esophagus. Biopsies taken and pending. hiatal hernia with evidence of previous Linda Colonoscopy with multiple diverticula noted but no active bleeding, no AVMs, no colitis. Two 3-4 mm polyps in the transverse colon were cold snared and excised. Few internal hemorrhoids noted that were not actively bleeding b.i.d. Protonix recommended for esophagitis. Monitor H&H closely findings thought to be secondary to EGD findings per report (3) Abnormal urinalysis: Code(s): R82.90 - Unspecified abnormal findings in urine Status: Acute Assessment and Plan: UA with 2+ leukocytes, greater than 75 wbc's and 1+ bacteria. She denies suprapubic tenderness or flank pain. No leukocytosis or fever noted. Lactic acid was 2.5 on admission however this may be secondary to acute GI bleed. Urine culture pending Started on ceftriaxone will transition to cefdinir for DC likely asymptomatic bacteriuria (4) Hypertension: Qualifiers: Hypertension type: primary hypertension Qualified Code(s): I10 - Essential (primary) hypertension Code(s): I10 - Essential (primary) hypertension Status: Chronic Assessment and Plan: chronic, stable, BP 119/61, HR is 87 Resume lisinopril at home dose Monitor vitals (5) Hyperlipidemia: Qualifiers: Hyperlipidemia type: unspecified Qualified Code(s): E78.5 - Hyperlipidemia, unspecified Code(s): E78.5 - Hyperlipidemia, unspecified Status: Chronic Assessment and Plan: chronic, continue pravastatin (6) Cardiac murmur: Code(s): R01.1 - Cardiac murmur, unspecified Status: Acute Assessment and Plan: new, noted on physical exam, systolic murmur loudest at right sternal border. She denies prior history of known murmur. Transthoracic echocardiogram EF of 60-65% with mild/moderate aortic valve and grade 1 diastolic dysfunction Murmur may be worsened by acute anemia. DS: Summary Hospital Course Hospital Course: Patient is 86-year-old female with a past medical history of hypertension, hyperlipidemia presented the ED with complaints of weakness and diarrhea. Patient stated that she has not been feeling well for the last couple of days. Upon arrival patient was noted to have a hemoglobin of 5.6 and hematocrit of 18.9. Patient was transfused 2 units and GI was consulted. Patient did have an EGD which showed a grade 3 to the distal esophagus suggesting Villarreal's esophagus. Biopsies were taking however still pending. Colonoscopy was also completed and showed multiple diverticuli with out diverticulitis and polyps were removed. Patient was also started on Protonix b.i.d.. Hemoglobin hematocrit have remained stable over the last couple days at
--- NOTE | 2021-12-27 12:50 | WPDGIPROGNO ---
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9 - Diaphragmatic hernia without obstruction or gangrene Status: Acute Subjective Date/time seen: 12/27/21 12:50 Interval history: egd yesterday with erosive esophagitis and hiatal hernia, colonoscopy with diverticulosis without bleeding. Doing well and having lunch, denies abdominal pain, no melena Review of Systems Review of Systems: All systems reviewed & are unremarkable except as noted in HPI and below Exam Const: General: comfortable and no acute distress Other: pleasant elderly, having lunch HENMT: Face/Nose/Sinus: Normal nares present Eyes: General: appearance normal, both eyes and all related structures Neck: Neck: no JVD Resp: Auscultation: clear to auscultation bilaterally Cardio: Rate: regular rate Rhythm: regular rhythm GI: Inspection: non-distended GI Palp: Yes Soft to palpation, No Tenderness to palpation present (GI) and No Guarding due to palpation present (GI) Skin: General skin exam: normal color Neuro: Speech: normal speech Motor exam (neuro): 5/5 motor strength present throughout Extrem: General: normal to inspection Psych: Mental Status: mental status grossly normal Objective Data Vital Signs Vital Signs: Vital Signs - 24 hr 12/26/21 13:14 12/26/21 14:07 12/26/21 14:17 Temperature 98.7 F Pulse Rate 99 73 78 Respiratory Rate 16 21 H 15 Blood Pressure 169/92 H 91/54 L 109/61 Pulse Oximetry 98 100 100 Oxygen Delivery Room Air Room Air Room Air 12/26/21 14:27 12/26/21 14:38 12/26/21 16:00 Temperature 97.4 F L Pulse Rate 77 78 76 Respiratory Rate 18 16 Blood Pressure 130/75 139/73 Pulse Oximetry 100 97 Oxygen Delivery Room Air 12/26/21 19:55 12/26/21 20:00 12/27/21 00:00 Temperature 97.8 F Pulse Rate 87 88 83 Respiratory Rate 16 Blood Pressure 112/66 Pulse Oximetry 95 Oxygen Delivery 12/27/21 04:00 12/27/21 05:05 12/27/21 08:22 Temperature 97.6 F Pulse Rate 78 87 Respiratory Rate 16 Blood Pressure 119/61 Pulse Oximetry 95 Oxygen Delivery Room Air 12/27/21 10:21 Temperature Pulse Rate Respiratory Rate Blood Pressure Pulse Oximetry 94 Oxygen Delivery Room Air Intake/Output Intake/Output: Intake & Output 12/24/21 12/25/21 12/26/21 12/27/21 23:59 23:59 23:59 23:59 Intake Total 1599 1520 490 Output Total 600 400 Balance 999 1120 490 Meds/Results Medications: Active Medications Generic Name Dose Route Start Last Admin Trade Name Freq PRN Reason Stop Dose Admin Ascorbic Acid 250 mg 12/27/21 09:00 12/27/21 08:20 Ascorbic Acid 250 Mg Tablet PO 250 mg DAILY DIMITRIOS Administration Ceftriaxone Sodium/Dextrose 1 gm in 50 mls @ 100 mls/hr 12/27/21 10:30 12/27/21 11:43 Rocephin 1 Gm/D5w 50 Ml IVPB 100 mls/hr QAM DIMITRIOS Administration Lisinopril 5 mg 12/26/21 21:00 12/26/21 20:20 Lisinopril 5 Mg Tablet PO 5 mg HS DIMITRIOS Administration Ondansetron HCl 4 mg 12/25/21 12:42 Ondansetron Inj 4 Mg/2 Ml Vial IV PUSH Q4H PRN Nausea Pantoprazole Sodium 40 mg 12/26/21 21:00 12/27/21 08:20
[2021-12-27] MEDS: FERROUS SULFATE 324 MG TABLET PO (14:19)
[2022-01-03 18:19] LABS: Haptoglobin 175 mg/dL (43-212)
== END 2021-12-27 17:28 | disposition home or self-care (01) ==
LOC: ANHED 12:42 → ANH2MED 13:29
PROVIDERS: Internal Medicine Gastroenterology; Nurse Practitioner Family; Physician Assistant; Admitting Provider Internal Medicine; Emergency Provider Nurse Practitioner Family; PCP Internal Medicine; Visit Provider Internal Medicine
PROC: 0DJ08ZZ Inspection of Upper Intestinal Tract, Via Natural or Artificial Opening Endoscopic (ICD-10-PCS; CPT 43235; principal; 2021-12-26 14:30)
DX: D62 Acute posthemorrhagic anemia (principal); K22.10 Ulcer of esophagus without bleeding; K57.30 Diverticulosis of large intestine without perforation or abscess without bleeding; D12.3 Benign neoplasm of transverse colon; K44.9 Diaphragmatic hernia without obstruction or gangrene; K64.8 Other hemorrhoids; K21.00 Gastro-esophageal reflux disease with esophagitis, without bleeding; D50.9 Iron deficiency anemia, unspecified; R19.5 Other fecal abnormalities; R82.90 Unspecified abnormal findings in urine; B96.1 Klebsiella pneumoniae [K. pneumoniae] as the cause of diseases classified elsewhere; I10 Essential (primary) hypertension; R53.1 Weakness; R01.1 Cardiac murmur, unspecified; I08.0 Rheumatic disorders of both mitral and aortic valves; E78.5 Hyperlipidemia, unspecified; M06.9 Rheumatoid arthritis, unspecified; M81.0 Age-related osteoporosis without current pathological fracture; Z87.891 Personal history of nicotine dependence; Z79.82 Long term (current) use of aspirin; Z79.899 Other long term (current) drug therapy; Z82.49 Family history of ischemic heart disease and other diseases of the circulatory system
CPT/HCPCS: 43239; 45385; 36415; 36430; 80048; 80053; 81001; 82306; 82607; 82728; 82746; 83010; 83540; 83550; 83605; 83615; 83690; 83735; 84443; 85014; 85018; 85025; 85027; 85046; 85610; 85730; 86850; 86900; 86901; 86920; 87077; 87086; 87186; 88305; 88312; 88342; 93306; 96361; 96374; 96376; 99285; A9270; C9113; G0378; J0696; J2704; J7030; J7040; J7050; J7060; J7120; P9016

== ENCOUNTER → 2022-05-07 09:00 | Outpatient (CLI) | payer MEDICARE, SELFPAY ==
--- NOTE | ~2022-05-07 | CT_ITS ---
EXAMINATION: CTA chest DATE: 05/07/2022 10:06 INDICATION: Descending thoracic aortic aneurysm TECHNIQUE: Computed tomographic angiography (CTA) of the chest was performed with 100 mL Omnipque-350 intravenous contrast. Maximum intensity projection 3D-reconstructions of the aorta and other arterie s were constructed by the technologist on a separate workstation. The dose-length product (DLP) was 2 41.10 mGy-cm. Automated exposure control and iterative reconstruction technique were employed. COMPARISON: 02/04/2013 FINDINGS: There is a 5.0 x 4.1 cm fusiform aneurysm of the descending thoracic aorta. There is adjace nt calcified and noncalcified atherosclerosis. No dissection is identified. Cardiomegaly is noted. Th ere is calcified coronary artery atherosclerosis. There are small pleural effusions. Dependent atelec tasis is noted. There is no pneumothorax. There are no pathologically enlarged thoracic lymph nodes. A sliding hiatal hernia is noted. There is a 15 mm cyst of the left hepatic lobe. A small epigastric hernia containing fat is noted. There is moderate thoracic spondylosis. IMPRESSION: 1. 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 Reviewed, dictated and finalized at location B. VISION SERVICE ENGINEER
--- NOTE | ~2022-05-07 | DEXA_ITS ---
Bone Density Report Name: TACHO ROACH Age: 87 Sex: Female Ethnicity: White Date of : 1935 Indication: postmenopausal osteoporosis; height loss; prior fracture; hysterectomy; rheumatoid arthritis; Referring Provider: SHAUNA MALDONADO Study: Bone densitometry was performed. Exam Date: May 07, 2022 Accession number: [id number] Bone Density: Region BMD T-score Z-score Classification AP Spine (L1-L4) 0.850 -1.8 1.1 Osteopenia Femoral Neck (Right) 0.547 -2.7 -0.2 Osteoporosis Total Hip (Right) 0.608 -2.7 -0.4 Osteoporosis World Health Organization criteria for BMD impression classify patients as: Normal (T-score at or above -1.0), Osteopenia (T-score between -1.0 and -2.5), or Osteoporosis (T-score at or below -2.5). 10-year Fracture Risk: FRAX not reported because: Some T-score for Spine Total or Hip Total or Femoral Neck at or below -2.5 Prior hip or vertebral fracture Previous Exams: Region Exam Age BMD T-score BMD Change BMD Change Date g/cm2 vs Baseline vs Previous AP Spine(L1-L4) 05/07/2022 87 0.850 -1.8 0.097* 0.097* 12/12/2015 80 0.753 -2.7 Total Hip(Right) 05/07/2022 87 0.608 -2.7 0.035* 0.058* 04/13/2020 85 0.550 -3.2 -0.024 -0.024 12/12/2015 80 0.574 -3.0 *Denotes significance at 95% confidence level, LSC for AP Spine = 0.022 g/cm2, LSC for Total Hip = 0.027 g/cm2 Clinical Information Provided by Patient: Have had a previous hip or vertebral fracture Has had a low trauma fracture Has rheumatoid arthritis Has used the following medications: Vitamin D Has the following medical conditions: Hysterectomy Patient maximum height was 62 Menopause Age: 57 Does not regularly consume dairy products Onset of menses at age 16 Number of children 3 Impression: The patient has established osteoporosis, based on the Right Total Hip T-score and the existence of a prior fracture. The patient has risk factors, including: previous fracture. No significant bone loss was observed. Discussion: HIGH RISK OF FRACTURE. BONE DENSITY IS UNDESIRABLY LOW AT ONE OR MORE SKELETAL SITES, CONSISTENT WITH POSTMENOPAUSAL OSTEOPOROSIS. This patient's lowest T-score, in a patient who has previously fractured, meets the World Health Organization's (WHO) criteria for severe osteoporosis. In untreated patients, the risk of osteoporotic fracture increases approximately two-fold for each 1.0 SD decrease in T-score. Low bone density is not the only risk factor for fracture; also consider f
[2022-05-07 09:49] LABS: Estimated Glomerular Filt Rate > 60
== END ==
PROVIDERS: PCP Internal Medicine; Visit Provider Internal Medicine
DX: I71.23 Aneurysm of the descending thoracic aorta, without rupture (principal); M81.0 Age-related osteoporosis without current pathological fracture
CPT/HCPCS: 71275; 77080; Q9967

== ENCOUNTER 2023-02-11 18:00 | Outpatient (RCR) | payer MEDICARE, SELFPAY | END 2023-02-11 18:15 | disposition home or self-care (01) | LOC: ANHCPREHAB 18:00 | PROVIDERS: PCP Internal Medicine; Visit Provider Internal Medicine Cardiovascular Disease | DX: Z95.2 Presence of prosthetic heart valve (principal) | CPT/HCPCS: 93798 ==

== ENCOUNTER 2023-10-17 08:40 | Outpatient (CLI) | payer MEDICARE, SELFPAY ==
--- NOTE | ~2023-10-17 | US_ITS ---
EXAMINATION: US renal BI DATE: 10/17/2023 09:03 INDICATION: Chronic kidney dz TECHNIQUE: Multiple grayscale and Doppler ultrasound images of the kidneys were obtained. COMPARISON: CT abdomen pelvis 04/26/2021 FINDINGS: The right kidney measures 6.4 x 4.5 x 4.0 cm. The left kidney measures 10.8 x 3.4 x 2.9 cm. The kidne ys demonstrate normal parenchymal echogenicity. There is mild left pelviectasis. Mild bladder wall th ickening. IMPRESSION: Mild left pelviectasis. Small bilateral renal lengths, decreased since the prior study, may represent worsening interval atrophy or artifact of measurement. Mild bladder wall thickening as can be seen w ith cystitis, correlate with urinalysis. Reviewed, dictated and finalized at location K. IMPRESSION: Mild left pelviectasis. Small bilateral renal lengths, decreased since the prio r study, may represent worsening interval atrophy or artifact of measurement. M ild bladder wall thickening as can be seen with cystitis, correlate with urinal ysis.
== END 2023-10-17 08:41 ==
LOC: MICIMG 08:41
PROVIDERS: PCP Internal Medicine; Visit Provider Internal Medicine
DX: N18.9 Chronic kidney disease, unspecified (principal)
CPT/HCPCS: 76775

== ENCOUNTER 2024-08-05 08:11 | Outpatient (CLI) | payer MEDICARE, SELFPAY ==
--- NOTE | ~2024-08-05 | DEXA_ITS ---
Bone Density Report Name: TACHO ROACH Age: 89 Sex: Female Ethnicity: White Date of : 1935 Indication: postmenopausal; screening for osteoporosis; height loss; hysterectomy; Referring Provider: Natty England Study: Bone densitometry was performed. Exam Date: August 05, 2024 Accession number: [id number] Bone Density: Region BMD T-score Z-score Classification AP Spine(L1-L4) 0.903 -1.3 1.6 Osteopenia Femoral Neck (Right) 0.394 -4.1 -1.6 Osteoporosis Total Hip (Right) 0.555 -3.2 -0.8 Osteoporosis World Health Organization criteria for BMD impression classify patients as: Normal (T-score at or above -1.0), Osteopenia (T-score between -1.0 and -2.5), or Osteoporosis (T-score at or below -2.5). 10-year Fracture Risk: FRAX not reported because: Some T-score for Spine Total or Hip Total or Femoral Neck at or below -2.5 Clinical Information Provided by Patient: Has used the following medications: Fosamax (i.e. alendronate), Vitamin D, Calcium Has the following medical conditions: Hysterectomy Patient maximum height was 62 Menopause Age: 57 No regular weight bearing exercise Does not regularly consume dairy products Onset of menses at age 15 Number of children 3 Impression: The patient has osteoporosis, based on the Right Femoral Neck T-score. Discussion: INCREASED RISK OF FRACTURE. BONE DENSITY IS UNDESIRABLY LOW AT ONE OR MORE SKELETAL SITES, CONSISTENT WITH POSTMENOPAUSAL OSTEOPOROSIS. This patient's lowest T-score meets the World Health Organization's (WHO) criteria for osteoporosis at one or more sites (T-score -2.5 or below). In untreated patients, the risk of osteoporotic fracture increases approximately two-fold for each 1.0 SD decrease in T-score. Low bone density is not the only risk factor for fracture; also consider factors such as patient's age, frailty or poor health, risk of falling, risk of injury, previous osteoporotic fracture, family history of osteoporosis, cigarette smoking, low body weight, etc. Not everyone with low bone mineral density has osteoporosis; osteomalacia and other metabolic bone disorders should also be considered. Patients who have osteoporosis should be evaluated for specific diseases and conditions (secondary causes) that may cause or contribute to bone loss. The [place] [employer] Clinical Endocrinologists (AACE) and National Osteoporosis Foundation (NOF) recommend pharmacologic intervention for all postmenopausal women whose T-score is in this range. The patient should follow a healthful lifestyle (good nutrition with adequate calcium and vitamin D, and appropriate weight-bearing exercise). Follow-Up: Consider a repeat BMD and Vertebral Fracture Assessment (VFA) exam in 2 years or sooner if medically necessary, to reassess this patient's status. Reported by: PRAKASH on 08/12/2024 2:06:00 PM. Reviewed, dictated and finalized at location APepito JONES
== END 2024-08-05 08:12 | disposition home or self-care (01) ==
LOC: MICIMG 08:12
PROVIDERS: PCP Family Medicine; Visit Provider Family Medicine
DX: M85.88 Other specified disorders of bone density and structure, other site (principal); M81.0 Age-related osteoporosis without current pathological fracture
CPT/HCPCS: 77080